=== PATIENT | male | born 1945 | race Caucasian/White ===

== ENCOUNTER 2020-02-07 17:05 | Inpatient (IN) | payer MEDICARE ==
[~2020-02-07 17:05] MED LIST: Iopamidol-370 76% 500 ML 1 ML ONE
--- NOTE | 2020-02-07 17:59 | CT ---
CT ANGIOGRAM OF CHEST WITH CONTRAST: 02/07/20 HISTORY: NSTEMI. COMPARISON: None. FINDINGS: CT angiogram chest performed after the intravenous administration of contrast. 3D rendering provided. No proximal segmental pulmonary arterial filling defect. No pericardial effusion. No mediastinal adenopathy. Calcified hilar lymph nodes. There is scattered 4 to 5 mm pulmonary nodules in the right upper lobe. Mild subpleural reticulation in the lung bases. There is lower lobe interstitial pulmonary edema as well as thickening of the inte rstitium of the lower lobe bronchovascular bundles. No acute osseous abnormality. No acute displaced rib fracture. IMPRESSION: 1. No pulmonary embolism. 2. Mild pulmonary edema. 3. Scattered nodules in the right upper lobe for which follow-up CT of the chest in six months i s recommended. POS: HOME
[2020-02-07] MEDS ORDERED: Nitroglycerin 0.4 MG TAB (25 Tab Bottle) SL PRN (18:42)
[2020-02-07] MEDS ORDERED: Heparin 25,000 units/D5W 500 ML IVPB SCH (18:45)
[2020-02-07] MEDS ORDERED: Morphine 2 MG/ML SYRINGE SLOW IVP PRN (19:06)
[2020-02-07 19:18] LABS: Hemoglobin 13.2 g/dL (14.0-18.0); Platelet Count 257 thou/uL (130-400)
[2020-02-07 19:39] LABS: Anion Gap 12 mmol/L (10-20); BUN (Urea Nitrogen) 16 mg/dL (8.4-25.7); Calc. Creatinine Clearance 0 mL/min (70-130); Calcium 8.9 mg/dL (7.8-10.44); Carbon Dioxide 22 mmol/L (23-31); Chloride 102 mmol/L (98-107); Estimated GFR-MDRD Greater than 90; Glucose 104 mg/dL (83-110); Magnesium 1.8 mg/dL (1.6-2.6); Potassium 4.1 mmol/L (3.5-5.1); Sodium 132 mmol/L (136-145)
--- NOTE | 2020-02-07 19:50 | HP ---
CHIEF COMPLAINT: Chest pain. HISTORY OF PRESENT ILLNESS: A 75-year-old male with a history of hypertension, but not taking blood pressure medications, presenting with exertional angina. The patient originally from [place] moved to [place] and was building a house with his friends. He had few episodes of chest pain, mostly intermittent. This is the 4th episode that got very severe, mostly pressure-like radiating to the jaw and tingling numbness in his fingertips on the right hand. It lasted from noon to 3 :30 until he came to [facility] where they gave him aspirin, nitroglycerin, morphine as well as 25 mg of metoprolol and his chest pain improved. The patient is supposedly on blood pressure medication, but it caused him lot of side effects including dizziness, so he stopped taking the medication. The patient is not diabetic and he does not have hyperlipidemia. No previous history of [place] or stroke. At [facility], they saw the EKG changes with T-inversions in the inferior leads as well as ST depressions in V2 to V4. Troponin 0.015. CT PE is negative. He was started on heparin drip and transferred to the ER here. I requested the emergent ER physician to call the Cardiology as well. Started on a heparin drip. I personally reviewed the EKG. The [facility] EKG shows a definite ST depressions in V2 to V4. Repeat EKG here shows the ST depression seems to be resolved. He still has T-inversions in the inferior lead. REVIEW OF SYSTEMS: A 13-point review of systems reviewed with the patient. He denies any recent fever, night sweats, chills, or productive cough. No nausea, vomiting, abdominal pain, constipation, diarrhea, hematuria, dysuria, or hematochezia. Denies any headache or blurriness. No specific weakness in his extremities. Denies any rash in the body. No sick exposure. ALLERGIES: NO KNOWN DRUG ALLERGY. PAST MEDICAL HISTORY: Hypertension. PAST SURGICAL HISTORY: None. SOCIAL HISTORY: He used to live in [place] with his son-in-law and daughter. Now, he moved to [place] and staying with his friends and building a house. He does not smoke or drink alcohol. FAMILY HISTORY: Significant for mother had a stroke and hypertension. PHYSICAL EXAMINATION: VITAL SIGNS: He is afebrile. Currently normotensive. HEENT: Pupils equal, round, and reactive to light. Anicteric. Mucous membranes moist. CARDIOVASCULAR: Regular rate and rhythm without murmurs, rubs, or gallops. LUNGS: Clear to auscultation bilaterally without wheezing, rales, or rhonchi. ABDOMEN: Soft, nontender, nondistended. Good bowel sounds. No guarding or rigidity. EXTREMITIES: Without any pitting edema. No rash. PSYCHIATRIC: Appropriate mood and affect. NEUROLOGIC: No focal deficits. LABORATORY DATA: Currently, no labs here available yet. EKG changes as mentioned in the history of present illness. IMPRESSION AND PLAN: 1. A 75-year-old male with a history of hypertension and not on medications, presenting with exertional intermittent angina. 2. Non-ST segment elevation myocardial infarction with EKG changes with ST depressions in the anterior leads, V2 to V4, as well as T-inversions in the inferior lead. 3. Hypertension. The patient is admitted in the telemetry, we will continue with heparin protocol, aspirin, nitroglycerin sublingual as needed, along with morphine IV to ease the chest pain. Currently, he is chest pain free. Risk factors modifications with A1c, lipid panel as well as TSH. Cardiology has been consulted. We will follow with their recommendations. We will keep the patient n.p.o. midnight for possible cath in the morning. We will also initiate Toprol as well as Lipitor and adjust the doses based on the lipid level as well as blood pressure. 4. Rest of the management based on clinical course. 5. He is full code. Job ID: [id number] MTDD
[2020-02-07 20:09] LABS: CKMB 71.8 ng/mL (0-6.6)
[2020-02-07] MEDS ORDERED: Atorvastatin Calcium 20 MG TAB PO SCH (21:00)
[2020-02-07] MEDS ORDERED: Metoprolol Tartrate 25 MG TAB PO SCH (21:00)
[2020-02-07] MEDS: Heparin 10,000 UNITS/ 10 ML VIAL SLOW IVP SCH (21:08)
[2020-02-07] MEDS: Famotidine/PF 20 mg/2ml Vial SLOW IVP SCH (21:20)
[2020-02-08] MEDS ORDERED: traMADol HCl 50 MG TAB PO SCH (01:30)
[2020-02-08 02:28] LABS: CKMB 139.8 ng/mL (0-6.6)
[2020-02-08] MEDS: Nitroglycerin 2% Ointment 1 INCH/1 GM Packet TOP SCH ×3 (02:30→17:56)
[2020-02-08 02:53] LABS: #Basophils 0.1 thou/uL (0.0-0.2); #Eosinphils 0.2 thou/uL (0.0-0.7); #Lymphocytes 1.7 thou/uL (1.20-3.40); #Monocytes 0.8 thou/uL (0.11-0.59); #Neutrophils 8.6 thou/uL (1.40-6.50); %Basophils 0.5 % (0.0-1.0); %Eosinophils 1.5 % (0.0-10.0); %Lymphocytes 15.1 % (21.0-51.0); %Monocytes 7.2 % (0.0-10.0); %Neutrophils 75.7 % (42.0-75.0); Hemoglobin 12.9 g/dL (14.0-18.0); Mean Corpuscular HGB CONC 32.4 g/dL (32.0-36.0); Mean Corpuscular Hemoglobin 31.3 pg (27.0-31.0); Mean Corpuscular Volume 96.6 fL (78.0-98.0); Mean Platelet Volume 9.2 fL (7.4-10.4); Platelet Count 234 thou/uL (130-400); RBC Distribution Width 12.4 % (11.5-14.5); Red Blood Cell (RBC) Count 4.11 mill/uL (4.70-6.10); White Blood Cell (WBC) Count 11.4 thou/uL (4.8-10.8)
[2020-02-08 03:26] LABS: ALT (SGPT) 31 U/L (8-55); AST (SGOT) 97 U/L (5-34); Albumin 3.6 g/dL (3.4-4.8); Alkaline Phosphatase 42 U/L (40-110); Anion Gap 12 mmol/L (10-20); BUN (Urea Nitrogen) 18 mg/dL (8.4-25.7); Bilirubin, Total 0.5 mg/dL (0.2-1.2); Calc. Creatinine Clearance 70 mL/min (70-130); Calcium 8.7 mg/dL (7.8-10.44); Carbon Dioxide 20 mmol/L (23-31); Cardiac Risk 3.1 (Less than 4.5); Chloride 107 mmol/L (98-107); Cholesterol 214 mg/dl (< 200 Desired); Estimated GFR-MDRD Greater than 90; Globulin 2.6 g/dL (2.4-3.5); Glucose 112 mg/dL (83-110); HDL Cholesterol 69 mg/dL (>60 Neg Risk); LDL Cholesterol, Calculated 136 mg/dL; Protein, Total 6.2 g/dL (5.8-8.1); Sodium 135 mmol/L (136-145); Triglycerides 47 mg/dL (Less than 150)
[2020-02-08] MEDS: Heparin 10,000 UNITS/ 10 ML VIAL SLOW IVP SCH (03:47)
[2020-02-08] MEDS ORDERED: Ondansetron ODT 4 MG TAB PO PRN (03:55)
[2020-02-08] MEDS ORDERED: Ondansetron PF 4 MG/2 ML Vial IVP PRN (03:55)
[2020-02-08 05:44] LABS: CKMB 137.3 ng/mL (0-6.6); Critical Call CKMB RESULT DECREASING
[2020-02-08] MEDS ORDERED: Nitroglycerin 2% Ointment 1 INCH/1 GM Packet TOP SCH (06:00)
[2020-02-08] MEDS ORDERED: Sodium Chloride 0.9% 10 ML ONE (07:53)
[2020-02-08] MEDS ORDERED: Iopamidol 370 76% 100 ML VIAL ONE (08:51)
[2020-02-08] MEDS: Famotidine/PF 20 mg/2ml Vial SLOW IVP SCH (08:51)
[2020-02-08] MEDS: Aspirin 81 mg Enteric Coated Tablet PO SCH (08:51)
[2020-02-08] MEDS ORDERED: Metoprolol Tartrate 25 MG TAB PO SCH (09:00)
[2020-02-08] MEDS ORDERED: Diazepam 5 MG TAB PO SCH (10:15)
[2020-02-08] MEDS ORDERED: Communication Order-Pharmacy FS SCH ×2 (10:15→13:15)
--- NOTE | 2020-02-08 11:42 | PDOC.HOSPP ---
- Subjective Encounter Date: 02/08/20 Encounter Time: 09:30 Subjective: denies any CP since admission, on NTG patch, trop 11 to 22. going or cath this afternoon. - Objective Vital Signs & Weight: Vital Signs (12 hours) Temp Pulse Resp BP BP Pulse Ox 02/08/20 07:30 98.4 F 56 L 18 106/71 95 02/08/20 03:08 98.3 F 50 L 18 122/70 94 L Weight Weight 135 lb I&O: 02/07/20 02/08/20 02/09/20 06:59 06:59 06:59 Intake Total 350 Output Total 300 Balance 50 Result Diagrams: 02/08/20 02:46 02/08/20 02:46 Hospitalist ROS - Medication Medications: Active Medications Generic Name Dose Route Start Last Admin Trade Name Freq PRN Reason Stop Dose Admin Aspirin 81 mg 02/08/20 09:00 02/08/20 08:51 Ecotrin PO 81 mg DAILY MARQUES Administration Atorvastatin Calcium 20 mg 02/07/20 21:00 02/07/20 21:20 Lipitor PO 20 mg HS MARQUES Administration Heparin Sodium (Porcine) 0 units 02/07/20 18:45 02/08/20 03:47 Heparin 1,000 Units/Ml (10 Ml) SLOW IVP 1,848 unit ASDIR MARQUES Administration Protocol Heparin Sodium/Dextrose 500 mls @ 0 mls/hr 02/07/20 18:45 02/07/20 21:11 Heparin 25,000 Units/D5w IVPB 500 mls INF MARQUES Administration Protocol Per Protocol Nitroglycerin 0.5 inch 02/08/20 02:30 02/08/20 10:04 Nitro-Bid 2% Ointment TOP 0.5 inch Q8H MARQUES Administration Ondansetron HCl 4 mg 02/08/20 03:55 02/08/20 04:45 Zofran Odt PO 4 mg Q6H PRN Administration Nausea/Vomiting - Exam General Appearance: NAD, awake alert Eye: PERRL ENT: normocephalic atraumatic Neck: supple Heart: RRR Respiratory: CTAB, normal chest expansion Gastrointestinal: soft, normal bowel sounds Neurological: no focal deficits Psychiatric: normal affect, A&O x 3 Hosp A/P - Plan NSEMI --heparin gtt - ASA, NTG patch, lopressor[hold], lipitor and ACEI low dose --plan for cath this afternoon. HTN -BP on the low side - lopressor off. TSH in nl range HLP with LDL of 136 --increased lipitor dose.
[2020-02-08] MEDS ORDERED: Fentanyl 100 MCG/2 ML VIAL ONE (11:54)
[2020-02-08] MEDS ORDERED: Midazolam HCl 2 mg/2 ml Vial ONE (11:54)
[2020-02-08] MEDS ORDERED: Nitroglycerin 100MG/250ML BOT 250 ML ONE (12:27)
--- NOTE | 2020-02-08 12:48 | CON ---
DATE OF CONSULTATION: 02/08/2020 REASON FOR CONSULTATION: Non-ST elevation myocardial infarction. HISTORY OF PRESENT ILLNESS: Mr. Nichole is a 75-year-old gentleman with history of peripheral vascular disease, history of deep venous thrombosis in the past with non-ST elevation infarction yesterday. Mr. Nichole was at home. He started having the onset of severe pain across his chest. It was intense. He initially thought it was indigestion, but later went to the emergency room in [place]. He had deep ST depression in the anterior chest leads, especially pronounced was V2, V3, and there is some degree in V4. The EKGs subsequently showed some transient ST elevation in leads II, III, and aVF with ST depression in V2 and V3 with lower heart rate. The patient was given medication. He has received nitrates. He has received intravenous heparin. EKG yesterday evening was markedly improved with T-wave inversions in the inferior leads. Next, the patient is resting pain-free now. No chest pain or pressure now. PAST MEDICAL HISTORY: 1. History of smoking, but he quit 20 years ago. 2. History of peripheral vascular disease. He was told they could consider putting a stent in his lower extremity, but he opted not to do that and is doing okay from a peripheral disease standpoint. 3. He said he had a clot in his left leg over a year ago, was transiently on Eliquis. The patient states he underwent evaluation at [facility] a few years ago and did not find any cardiac problems at that time after a syncopal episode. The patient is currently resting comfortably, pain free. MEDICATIONS: He was taking none prior to admission except for some "supplements." The patient here is on aspirin and atorvastatin. He is on intravenous heparin and nitrates as well as Protonix. REVIEW OF SYSTEMS: CONSTITUTIONAL: No significant weight gain or loss. VISION: No changes. HEARING: No changes. PULMONARY: No cough or wheezing. GASTROINTESTINAL: No nausea, vomiting, or diarrhea. SKIN: No rashes. NEUROLOGIC: No unilateral weakness or numbness. PSYCHIATRIC: No unusual depression or anxiety. HEMATOLOGIC: No unusual bruising. GENITOURINARY: No burning with urination. SOCIAL HISTORY: As outlined above. He is continuing to work, doing physical work. He said he has been doing well until about 2 weeks ago. He started having exertional chest pressure and any stabbing pain at rest yesterday. PHYSICAL EXAMINATION: GENERAL: This is a pleasant, thin gentleman 75 years of age. VITAL SIGNS: Blood pressure 106/71 and pulse 60, it is regular. EYES: Sclerae are nonicteric. Mouth; mucous membranes moist. NECK: Supple without lymphadenopathy. LUNGS: Clear. CARDIAC: Normal S1. Normal S2. There is no murmur, rub, or gallop. ABDOMEN: Soft and nontender. EXTREMITIES: Warm and dry. No clubbing, cyanosis, or edema. The patient has palpable femoral pulse on the right and a palpable femoral pulse in the left, but is diminished. I do not feel popliteal pulses. I do not feel pedal pulses. PERTINENT LABORATORY DATA: The patient had EKGs as outlined above. The patient's troponin this morning was 22.78, indicating a moderate amount of myocardial injury. LDL cholesterol early this morning was 136. ASSESSMENT: 1. Status post non-ST elevation myocardial infarction. 2. Peripheral vascular disease. 3. Remote history of smoking, quit 20 years ago. 4. Currently, pain-free. 5. Hypocholesterolemia, appear with triglycerides 47. PLAN: 1. He is on aspirin. 2. He is on heparin. 3. Received nitrates. 4. Hold beta-blockers if heart rates have been in the 50s. 5. Proceed to cardiac catheterization. Discussed the risks of procedure including stroke, heart attack, iodine allergy, loss of blood supply to leg or kidney, risk of stent thrombosis, risk emergency bypass surgery, all discussed. However, cardiac catheterization is definitely indicated in this situation. The patient understands and he wishes to proceed. Job ID: [id number]
[2020-02-08] MEDS ORDERED: Communication Order-Pharmacy FS ONE (12:49)
[2020-02-08] MEDS ORDERED: Acetaminophen/Codeine 30-300mg Tablet PO PRN ×2 (14:14)
[2020-02-08] MEDS ORDERED: Sodium Chloride 0.9% 200 ML IV PRN (14:14)
[2020-02-08] MEDS ORDERED: Lisinopril 5 MG TAB PO SCH (17:45)
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
[2020-02-08] MEDS: Atorvastatin Calcium 20 MG TAB PO SCH (21:24)
[2020-02-08] MEDS: Nitroglycerin 0.4 MG TAB (25 Tab Bottle) SL PRN ×2 (21:24→22:14)
[2020-02-09] MEDS: Nitroglycerin 2% Ointment 1 INCH/1 GM Packet TOP SCH ×3 (02:55→17:40)
[2020-02-09] MEDS ORDERED: Lisinopril 2.5 MG TAB PO SCH (09:00)
[2020-02-09] MEDS: Lisinopril 5 MG TAB PO SCH (10:18)
[2020-02-09] MEDS: Aspirin 81 mg Enteric Coated Tablet PO SCH (10:20)
--- NOTE | 2020-02-09 10:28 | PRG ---
DATE OF SERVICE: 02/09/2020 SUBJECTIVE: Dionisio still has occasional chest discomfort, currently much better, pain-free now. OBJECTIVE: VITAL SIGNS: Blood pressure 114/60, pulse 68. LUNGS: Clear. CARDIAC: Normal S1 and S2. ABDOMEN: Soft, nontender. ASSESSMENT: 1. Status post recent posterolateral infarct. 2. Recurrent chest tightness, probably related to the occluded circumflex filling by collaterals. 3. Also has a critical lesion in the right coronary. PLAN: 1. He is on aspirin. 2. Statin. 3. Nitrates. 4. Beta blockers. 5. KRISSY inhibitors. 6. Plan is to proceed due to bypass surgery on Tuesday. Job ID: [id number] MTDD
--- NOTE | 2020-02-09 17:00 | PDOC.HOSPP ---
- Subjective Encounter Date: 02/09/20 Encounter Time: 14:00 Subjective: The patient reported that he had some chest pain that felt like a tightness. He states the nitro makes his chest pain go away. No SOB. He also reports cramps in his legs and was told he had 50% blockage in his arteries in his legs. He also has varicose veins and states that his left heel is hurting and wondering if that is from his varicose vein. He is asking for topical cream to be applied there so he can sleep better at night - Objective Vital Signs & Weight: Vital Signs (12 hours) Temp Pulse Resp BP Pulse Ox 02/09/20 16:34 98.8 F 71 18 112/62 96 02/09/20 13:15 98.0 F 66 18 119/62 97 02/09/20 08:55 98.3 F 68 18 114/62 95 Weight Admit Weight 135 lb Weight 135 lb I&O: 02/08/20 02/09/20 02/10/20 06:59 06:59 06:59 Intake Total 350 1280 Output Total 300 1100 Balance 50 180 Result Diagrams: 02/08/20 02:46 02/08/20 02:46 Hospitalist ROS - Review of Systems Constitutional: denies: fever, chills - Medication Medications: Active Medications Generic Name Dose Route Start Last Admin Trade Name Deja PRN Reason Stop Dose Admin Aspirin 81 mg 02/08/20 09:00 02/09/20 10:20 Ecotrin PO 02/11/20 08:59 81 mg DAILY MARQUES Administration Atorvastatin Calcium 80 mg 02/08/20 11:41 02/08/20 21:24 Lipitor PO 02/11/20 08:59 80 mg HS MARQUES Administration Lisinopril 5 mg 02/09/20 09:00 02/09/20 10:18 Zestril PO Not Given DAILY MARQUES Metoprolol Succinate 25 mg 02/09/20 09:00 02/09/20 10:19 Toprol Xl PO Not Given DAILY MARQUES Nitroglycerin 0.5 inch 02/08/20 02:30 02/09/20 10:20 Nitro-Bid 2% Ointment TOP 02/11/20 08:59 0.5 inch Q8H MARQUES Administration Nitroglycerin 0.4 mg 02/08/20 14:14 02/08/20 22:14 Nitrostat SL 02/11/20 08:59 0.4 mg Q5MIN PRN Administration Chest Pain Ondansetron HCl 4 mg 02/08/20 03:55 02/08/20 04:45 Zofran Odt PO 02/11/20 08:59 4 mg Q6H PRN Administration Nausea/Vomiting Pantoprazole Sodium 40 mg 02/09/20 09:00 02/09/20 10:20 Protonix PO 02/11/20 08:59 40 mg DAILY MARQUES Administration - Exam General Appearance: NAD, awake alert Eye: PERRL, anicteric sclera ENT: normocephalic atraumatic, no oropharyngeal lesions Neck: no JVD Heart: RRR, no murmur, no gallops, no rubs Respiratory: CTAB, no wheezes, no rales, no ronchi Gastrointestinal: soft, non-tender, non-distended, normal bowel sounds Extremities: no edema Extremities - other findings: varicose veins in legs Skin: normal turgor, no lesions, no rashes Neurological: cranial nerve grossly intact, normal sensation to touch, no focal deficits, no new deficit Musculoskeletal: normal tone, normal strength, no muscle wasting Musculoskeletal - other findings: tenderness left heel and mild redness Psychiatric: normal affect, normal behavior, A&O x 3, oriented to person Hosp A/P - Plan ECHO: EF 50-55%, with posterior and lateral hypokinesis Cath: 2 vessel disease with circumflex occlusion and RCA 95% This is a 75 year old male who presented with chest pain radiating to the jaw and right hand NSTEMI - ECHO shows EF 50-55% with posterior and lateral wall hypokinesis. Troponin up to 22. Cath showed 2 vessel disease - plan for CABG on Tuesday - continue nitro patch - continue aspirin, statin, lisinopril, nitro Bilateral iliac stenosis - continue aspirin and statin Varicose vein - lidocaine prn for pain Leukocytosis - WBC 11.4, no signs of infection currently Anemia - stable Hb 12.9
[2020-02-09 19:02] LABS: Hemoglobin 12.5 g/dL (14.0-18.0); Platelet Count 213 thou/uL (130-400)
[2020-02-09] MEDS: Atorvastatin Calcium 20 MG TAB PO SCH (20:53)
[2020-02-10] MEDS: Nitroglycerin 2% Ointment 1 INCH/1 GM Packet TOP SCH ×3 (02:02→17:05)
[2020-02-10 04:17] LABS: Anion Gap 12 mmol/L (10-20); BUN (Urea Nitrogen) 14 mg/dL (8.4-25.7); Calc. Creatinine Clearance 69 mL/min (70-130); Calcium 8.9 mg/dL (7.8-10.44); Carbon Dioxide 23 mmol/L (23-31); Chloride 106 mmol/L (98-107); Estimated GFR-MDRD Greater than 90; Glucose 94 mg/dL (83-110); Potassium 4.1 mmol/L (3.5-5.1); Sodium 137 mmol/L (136-145)
[2020-02-10 04:18] LABS: Hemoglobin 12.2 g/dL (14.0-18.0); Mean Corpuscular HGB CONC 32.8 g/dL (32.0-36.0); Mean Corpuscular Hemoglobin 31.8 pg (27.0-31.0); Mean Corpuscular Volume 96.8 fL (78.0-98.0); Mean Platelet Volume 10.1 fL (7.4-10.4); Platelet Count 203 thou/uL (130-400); RBC Distribution Width 12.5 % (11.5-14.5); Red Blood Cell (RBC) Count 3.83 mill/uL (4.70-6.10)
[2020-02-10] MEDS: Lisinopril 5 MG TAB PO SCH (08:32)
[2020-02-10] MEDS: Aspirin 81 mg Enteric Coated Tablet PO SCH (08:33)
[2020-02-10] MEDS ORDERED: LIDOCAINE 4% Topical Sol 4 ML SOLN.PK.G. TP SCH (09:00)
[2020-02-10] MEDS: Lidocaine 4% Topical Sol 50 ML BOT TOP PRN ×2 (12:36→17:05)
--- NOTE | 2020-02-10 14:38 | PRG ---
DATE OF SERVICE: 02/10/2020 SUBJECTIVE: Mr. Nichole is doing well today. No chest pain or pressure. Feels well. OBJECTIVE: VITAL SIGNS: Blood pressure 133/81; pulse 70, it is regular. LUNGS: Clear. CARDIAC: Normal S1. Normal S2. ABDOMEN: Soft and nontender. Right groin is clean and dry. EXTREMITIES: No edema. ASSESSMENT: 1. Status post posterior wall infarct with collateral formation. 2. Severe coronary artery disease in the right coronary. PLAN: Proceed to bypass surgery tomorrow. We will give him a single dose of Lovenox, DVT prophylaxis dose today. Job ID: [id number]
--- NOTE | 2020-02-10 14:54 | PDOC.HOSPP ---
- Subjective Encounter Date: 02/10/20 Encounter Time: 12:00 Subjective: The patient reports his chest pain is relieved with nitroglycerin. He has some shortness of breath while walking today but no dizziness or lightheadedness. He states he still has some cramps in his left leg, but none in his right leg. He was told his ankle brachial index was abnormal 10-15 years ago and stated he had a blockage in popliteal artery but it was not amenable to stenting. This was apparently at [facility] in [place] but he has not had it re-evaluated since - Objective Vital Signs & Weight: Vital Signs (12 hours) Temp Pulse Resp BP BP Pulse Ox 02/10/20 11:00 98.1 F 73 18 133/81 97 02/10/20 08:29 72 110/64 02/10/20 07:27 99.2 F 76 17 109/64 95 02/10/20 04:00 99.4 F 69 16 103/58 L 95 Weight Admit Weight 135 lb Weight 135 lb I&O: 02/09/20 02/10/20 02/11/20 06:59 06:59 06:59 Intake Total 1280 360 Output Total 1100 525 Balance 180 -165 Result Diagrams: 02/10/20 03:37 02/10/20 03:37 Hospitalist ROS - Review of Systems Constitutional: denies: fever, chills - Medication Medications: Active Medications Generic Name Dose Route Start Last Admin Trade Name Freq PRN Reason Stop Dose Admin Aspirin 81 mg 02/08/20 09:00 02/10/20 08:33 Ecotrin PO 02/11/20 08:59 81 mg DAILY MARQUES Administration Atorvastatin Calcium 80 mg 02/08/20 11:41 02/09/20 20:53 Lipitor PO 02/11/20 08:59 80 mg HS MARQUES Administration Enoxaparin Sodium 30 mg 02/10/20 16:00 02/10/20 14:26 Lovenox SC 02/10/20 18:00 30 mg NOW MARQUES Administration Lidocaine HCl 0 ml 02/09/20 15:12 02/10/20 12:36 Xylocaine 4% Topical Annie TOP 1 applic DAILY PRN Administration L HEEL PAIN Lisinopril 5 mg 02/09/20 09:00 02/10/20 08:32 Zestril PO Not Given DAILY MARQUES Metoprolol Succinate 25 mg 02/09/20 09:00 02/10/20 08:32 Toprol Xl PO Not Given DAILY MARQUES Nitroglycerin 0.5 inch 02/08/20 02:30 02/10/20 08:33 Nitro-Bid 2% Ointment TOP 02/11/20 08:59 0.5 inch Q8H MARQUES Administration Nitroglycerin 0.4 mg 02/08/20 14:14 02/08/20 22:14 Nitrostat SL 02/11/20 08:59 0.4 mg Q5MIN PRN Administration Chest Pain Ondansetron HCl 4 mg 02/08/20 03:55 02/08/20 04:45 Zofran Odt PO 02/11/20 08:59 4 mg Q6H PRN Administration Nausea/Vomiting Pantoprazole Sodium 40 mg 02/09/20 09:00 02/10/20 08:33 Protonix PO 02/11/20 08:59 40 mg DAILY MARQUES Administration - Exam General Appearance: NAD, awake alert Eye: PERRL, anicteric sclera ENT: normocephalic atraumatic, no oropharyngeal lesions Neck: no JVD Heart: RRR, no murmur, no gallops, no rubs Respiratory: CTAB, no wheezes, no rales, no ronchi Gastrointestinal: soft, non-tender, non-distended, normal bowel sounds Extremities: no cyanosis, no clubbing, no edema Extremities - other findings: diminished pulses dorsal pedis Skin: normal turgor, no lesions, no rashes Neurological: cranial nerve grossly intact, normal sensation to touch, no focal deficits, no new deficit Musculoskeletal: normal tone, normal strength, no muscle wasting Psychiatric: A&O x 3 Hosp A/P - Plan ECHO: EF 50-55%, with posterior and lateral hypokinesis Cath: 2 vessel disease with circumflex occlusion and RCA 95% CTA chest: no PE, mild pulmonary edema. RUL nodules for which follow up CT chest recommended This is a 75 year old male who presented with chest pain radiating to the jaw and right hand NSTEMI - ECHO shows EF 50-55% with posterior and lateral wall hypokinesis. Troponin up to 22. Cath showed 2 vessel disease - plan for CABG on Tuesday - continue nitro patch - continue aspirin, statin, lisinopril, nitro - give one dose of lovenox today per cardiology Bilateral iliac stenosis - continue aspirin and statin - will check arterial dopplers due to diminished pulses and cramps in legs Varicose vein - lidocaine prn for pain Leukocytosis - WBC 11.0, no signs of infection currently, will monitor Anemia - stable Hb 12.2 RUL pulmonary nodule - noted on CTA chest. Needs repeat CT of the chest in 6 months
[2020-02-10] MEDS ORDERED: Enoxaparin Sodium 30 MG/0.3 ML SYRINGE SC SCH (16:00)
--- NOTE | 2020-02-10 16:20 | EKG ---
Test Reason : STAT Blood Pressure : / mmHG Vent. Rate : 057 BPM Atrial Rate : 057 BPM P-R Int : 130 ms QRS Dur : 072 ms QT Int : 460 ms P-R-T Axes : 035 063 -69 degrees QTc Int : 447 ms Sinus bradycardia with Premature atrial complexes T wave abnormality, consider inferior ischemia Abnormal ECG Confirmed by AMELIA JUAREZ (2) on 02/10/2020 4:20:24 PM Referred By: WU MENA Confirmed By:AMELIA JUAREZ
--- NOTE | 2020-02-10 16:31 | EKG ---
Test Reason : STAT Blood Pressure : / mmHG Vent. Rate : 050 BPM Atrial Rate : 050 BPM P-R Int : 134 ms QRS Dur : 070 ms QT Int : 492 ms P-R-T Axes : 016 074 -82 degrees QTc Int : 448 ms Poor data quality, interpretation may be adversely affected Sinus bradycardia T wave abnormality, consider inferior ischemia Abnormal ECG No previous ECGs available Confirmed by AMELIA JUAREZ (2) on 02/10/2020 4:30:53 PM Referred By: Confirmed By:AMELIA JUAREZ
--- NOTE | 2020-02-10 16:32 | EKG ---
Test Reason : STAT Blood Pressure : / mmHG Vent. Rate : 049 BPM Atrial Rate : 049 BPM P-R Int : 128 ms QRS Dur : 072 ms QT Int : 504 ms P-R-T Axes : 020 075 -62 degrees QTc Int : 455 ms Marked sinus bradycardia Inerolateral ischemia Abnormal ECG Confirmed by AMELIA JUAREZ (2) on 02/10/2020 4:31:35 PM Referred By: WU MENA Confirmed By:AMELIA JUAREZ
--- NOTE | 2020-02-10 18:36 | ULT ---
Arterial duplex sonogram bilateral lower extremity HISTORY: Bilateral leg pain. Vascular disease. Decreased pulses. FINDINGS: Right: Good color and spectral Doppler flow. Monophasic flow is present within the common femoral art safia and deep femoral artery and within the proximal to midportion of the femoral artery. Elevated peak systolic velocity within the proximal portion of the femoral artery at 204 cm/s. No flow detecta ble within the distal femoral artery. Good color and spectral Doppler flow within the popliteal, anterior tibial, posterior tibial, and dorsalis pedis arteries. Left: Good color and spectral Doppler flow. Biphasic flow within the common femoral artery. Monophasi c flow within the deep femoral, femoral, popliteal, anterior tibial, posterior tibial, and dorsalis pedis arteries. IMPRESSION : Abnormal exam with evidence of vascular disease. Elevated velocity within the right femoral artery suggestive of significant stenosis. Absence of flow within the distal portion of the femoral artery may represent complete or near-complete occlusion. Dampened pulsatility is within the arterial structures of each leg suggest the possibility of a more proximal stenosis.
[2020-02-10] MEDS: Atorvastatin Calcium 20 MG TAB PO SCH (20:43)
[2020-02-11] MEDS: Nitroglycerin 2% Ointment 1 INCH/1 GM Packet TOP SCH (04:35)
[2020-02-11 05:43] LABS: Calc. Creatinine Clearance 64 mL/min (70-130); Estimated GFR-MDRD 87
[2020-02-11] MEDS: Lisinopril 5 MG TAB PO SCH (06:02)
[2020-02-11] MEDS ORDERED: Albumin 5% 500 ML ONE (06:32)
[2020-02-11] MEDS ORDERED: Fentanyl 250 MCG/5 ML VIAL ONE (06:44)
[2020-02-11] MEDS ORDERED: Midazolam HCl 5 mg/5 ml Vial ONE (06:44)
[2020-02-11] MEDS ORDERED: Vecuronium 10 MG VIAL ONE ×2 (06:45→11:07)
[2020-02-11] MEDS ORDERED: Dexmedetomidine 200 MCG/2 ML VIAL ONE (06:45)
[2020-02-11] MEDS ORDERED: Midazolam HCl 2 mg/2 ml Vial ONE (07:04)
[2020-02-11] MEDS ORDERED: Heparin 10,000 UNITS/1 ML VIAL 30,000 UNITS in Sodium Chloride 0.9% 1,000 ML FS SCH (07:45)
[2020-02-11] MEDS ORDERED: PHENYLEPHRINE-NS 100 MCG/ML 10 ML SYRINGE ONE (08:51)
[2020-02-11] MEDS ORDERED: Bisacodyl 10 MG SUPP PR PRN (11:01)
[2020-02-11] MEDS ORDERED: Potassium Chloride 20 MEQ/100 ML PREMIX BAG IVPB PRN (11:01)
[2020-02-11] MEDS ORDERED: Morphine 2 MG/ML SYRINGE SLOW IVP PRN (11:01)
[2020-02-11] MEDS ORDERED: Bisacodyl 5 MG TAB PO PRN (11:01)
[2020-02-11] MEDS ORDERED: Post-Op Insulin Drip Protocol IVPB ONE (11:01)
[2020-02-11] MEDS ORDERED: Magnesium 2 GM/50 ML 2 GM in Premix Bag 1 BAG IVPB SCH (11:01)
[2020-02-11] MEDS ORDERED: hydrALAZINE 20 MG/ML VIAL SLOW IVP PRN (11:01)
[2020-02-11] MEDS ORDERED: Norepinephrine 8 MG/0.9% NS 250 ML IVPB PRN (11:01)
[2020-02-11] MEDS ORDERED: niCARdipine 25 MG in Sodium Chloride 0.9% 250 ML 250 ML IVPB PRN (11:01)
[2020-02-11] MEDS ORDERED: Ondansetron PF 4 MG/2 ML Vial IVP PRN (11:01)
[2020-02-11] MEDS ORDERED: Mag-Al 1200 mg/1200 mg/30 ML UDCUP PO PRN (11:01)
[2020-02-11] MEDS ORDERED: DOPamine 400 MG/D5W 250 ML 250 ML IVPB PRN (11:01)
[2020-02-11] MEDS ORDERED: HYDROcodone/Acetaminophen 5/325 mg Tablet PO PRN (11:01)
[2020-02-11] MEDS ORDERED: Promethazine HCl 25 MG/ML VIAL IM PRN (11:01)
[2020-02-11] MEDS ORDERED: Fentanyl 100 MCG/2 ML VIAL SLOW IVP PRN (11:01)
[2020-02-11] MEDS ORDERED: Acetaminophen 325 MG TAB PO PRN (11:01)
[2020-02-11] MEDS ORDERED: Guaifenesin DM 100-10/5 ML UDCUP PO PRN (11:01)
[2020-02-11] MEDS ORDERED: Hetastarch 6% 500 ML 500 ML IVPB PRN (11:01)
[2020-02-11] MEDS ORDERED: Nitroglycerin 50 MG/250 ML BOT 250 ML IVPB PRN (11:01)
[2020-02-11] MEDS ORDERED: Heparin 5,000 UNITS/ML VIAL ONE (11:07)
[2020-02-11] MEDS ORDERED: Lidocaine 1% PF 5 ML VIAL ONE (11:07)
[2020-02-11] MEDS ORDERED: Magnesium Sulfate 1 GM/2 ML VIAL ONE (11:07)
[2020-02-11] MEDS ORDERED: Calcium Chloride 1 GM/10 ML Abboject SYRINGE ONE (11:07)
[2020-02-11] MEDS ORDERED: PROPOFOL 200 MG/20 ML VIAL ONE (11:07)
[2020-02-11] MEDS ORDERED: Lidocaine 2% PF 5 ML VIAL ONE (11:07)
[2020-02-11] MEDS ORDERED: Papaverine 60 MG/2 ML VIAL ONE (11:07)
[2020-02-11] MEDS ORDERED: Norepinephrine 4 MG/4 ML VIAL ONE (11:07)
[2020-02-11] MEDS ORDERED: Glycopyrrolate 0.2 MG/ML 5 ML SYRINGE ONE (11:07)
[2020-02-11] MEDS ORDERED: Thrombin 5000 UNITS/5 ML VIAL ONE (11:07)
[2020-02-11] MEDS ORDERED: Aminocaproic Acid 5 GM/20 ML VIAL ONE (11:07)
[2020-02-11] MEDS ORDERED: Protamine Sulfate 250 MG/25 ML VIAL ONE (11:07)
[2020-02-11] MEDS ORDERED: Potassium Chloride 60 MEQ/30 ML VIAL ONE (11:07)
[2020-02-11] MEDS ORDERED: Sodium Bicarb 50 MEQ/50 ML Abboject 8.4% SYRINGE ONE (11:07)
[2020-02-11] MEDS ORDERED: Ondansetron PF 4 MG/2 ML Vial ONE (11:07)
[2020-02-11] MEDS ORDERED: Nitroglycerin 50 MG/250 ML BOT ONE (11:07)
[2020-02-11] MEDS ORDERED: Cardioplegic Soln 1,000 ML BAG ONE (11:07)
[2020-02-11] MEDS ORDERED: Heparin 30,000 units/30 ml VIAL ONE (11:07)
[2020-02-11] MEDS ORDERED: HUMULIN R 100 UNITS in Sodium Chloride 0.9% 100 ML IVPB SCH (11:16)
[2020-02-11] MEDS ORDERED: Insulin Regular 300 UNITS/3 ML VIAL SC PRN (11:16)
[2020-02-11] MEDS ORDERED: Dextrose 50% Abboject 50 ML SYRINGE SLOW IVP PRN (11:16)
[2020-02-11] MEDS ORDERED: Dextrose 5% in Water 1,000 ML IV PRN (11:16)
[2020-02-11] MEDS ORDERED: Ketorolac Tromethamine 30 MG/ML VIAL ONE (11:42)
[2020-02-11] MEDS ORDERED: Ketorolac Tromethamine 30 MG/ML VIAL IVP SCH ×2 (12:00→12:15)
[2020-02-11 12:01] LABS: INR-International Normal Ratio 1.3; PTT 30.1 SEC (22.9-36.1); Prothrombin Time 16.1 sec (12.0-14.7)
[2020-02-11] MEDS: Fentanyl 100 MCG/2 ML VIAL SLOW IVP PRN ×2 (12:04→15:10)
[2020-02-11] MEDS: Lactated Ringer's 1,000 ML IV SCH (12:06)
[2020-02-11 12:12] LABS: Anion Gap 11 mmol/L (10-20); BUN (Urea Nitrogen) 16 mg/dL (8.4-25.7); Calc. Creatinine Clearance 73 mL/min (70-130); Calcium 7.5 mg/dL (7.8-10.44); Carbon Dioxide 24 mmol/L (23-31); Chloride 107 mmol/L (98-107); Estimated GFR-MDRD Greater than 90; Glucose 121 mg/dL (83-110); Potassium 4.3 mmol/L (3.5-5.1); Sodium 138 mmol/L (136-145)
--- NOTE | 2020-02-11 13:13 | OP ---
DATE OF PROCEDURE: 02/11/2020 PREOPERATIVE DIAGNOSIS: Coronary artery disease status post lateral NH. PROCEDURE PERFORMED: Coronary artery bypass graft x2, saphenous vein graft to a 1.5 mm right posterolateral and a 1.5 mm obtuse marginal with posterior plaquing. AWNING ASSEMBLER: Rush FINDINGS: The patient had some hemorrhage of his lateral wall, consistent with his recent NH. The patient had a history of DVT of the left leg and also some sort of procedure for varicose veins, that turned out to be based on ultrasound either laser ablation or removal of the saphenous vein on the right leg. In any event, the saphenous vein on the left leg on ultrasound appeared somewhat large. There appeared to be a suitable vein in the right thigh and this led to the surgical intervention on his legs. After prepping and draping, Dr. Beverly initially did an open vein harvest from the right greater saphenous vein. However, after removing a portion of this, it was very small, thin-walled and not suitable for use. He then began an open harvest of the left thigh and it was a dual system with one of the systems being utilized for the posterolateral branch and this was a nice vein and then the other vein for the OM was somewhat large. I performed a median sternotomy, entering the right pleura with a sternal saw. The pericardium was opened. The patient was heparinized. Cannulation carried out and cardiopulmonary bypass instituted. Vessels were inspected. The aorta crossclamped and a liter of cold blood cardioplegia given through the aortic root. Following completion of this, the distal right coronary artery had palpable plaque as expected and the PDA and posterolateral were both rather small, but the posterolateral at its origin appeared to be somewhat bigger and was open. Saphenous vein anastomosis was completed here, passing a 1.5 probe distally prior to tying the suture line. Following this, the obtuse marginal was opened and a large saphenous vein anastomosed here. Additional suture was required at the toe and the lateral aspect of the anastomosis and a 1.5 probe did pass distally prior to tying the suture line initially. The ramus was identified and it was rather small compared to the vein. It was felt best not to graft. The cross-clamp was removed and the partial occluding clamp placed and 2 proximal anastomosis performed on the aortic root. Following this, the patient was weaned from cardiopulmonary bypass. Cannula was removed and the aortic cannulation site secured with a Prolene suture. Mediastinal and right pleural drains were placed, following which the sternum was reapproximated with #7 interrupted wire using vancomycin paste on the sternal edges, platelet rich blood and platelet poor plasma. Subcutaneous tissue and skin were closed in layers and the patient is to be taken to the ICU in guarded condition. Job ID: [id number]
[2020-02-11 13:33] LABS: #Eosinphils 0.3 thou/uL (0.0-0.7); #Lymphocytes 1.4 thou/uL (1.20-3.40); #Monocytes 0.8 thou/uL (0.11-0.59); #Neutrophils 15.1 thou/uL (1.40-6.50); %Basophils 0.3 % (0.0-1.0); %Eosinophils 1.8 % (0.0-10.0); %Lymphocytes 8.1 % (21.0-51.0); %Monocytes 4.7 % (0.0-10.0); %Neutrophils 85.1 % (42.0-75.0); Hemoglobin 11.9 g/dL (14.0-18.0); Mean Corpuscular HGB CONC 31.9 g/dL (32.0-36.0); Mean Corpuscular Hemoglobin 31.2 pg (27.0-31.0); Mean Corpuscular Volume 97.8 fL (78.0-98.0); Mean Platelet Volume 10.4 fL (7.4-10.4); Platelet Count 168 thou/uL (130-400); RBC Distribution Width 12.3 % (11.5-14.5); Red Blood Cell (RBC) Count 3.82 mill/uL (4.70-6.10); White Blood Cell (WBC) Count 17.7 thou/uL (4.8-10.8)
--- NOTE | 2020-02-11 13:50 | RAD ---
CHEST ONE VIEW PORTABLE: History: Recent post op open heart surgery. Comparison: 02-07-2020 FINDINGS: Recent post underlying sternotomy. Right central line in place. Decreased inspiratory effort from the prior preoperative study with some mild bilateral vascular congestion and minimal increased linear a nd interstitial markings. No evidence for pneumothorax or confluent pneumonia or atelectasis. IMPRESSION: Bilateral vascular congestion. Recent post-operative changes. POS: [facility]
--- NOTE | 2020-02-11 13:56 | PDOC.HOSPP ---
- Subjective Encounter Date: 02/11/20 Encounter Time: 13:54 Subjective: Patient is s/p CABG. He complains of frequent muscle spasms in his chest and has difficulty taking a deep breath. He has no nausea or vomiting. Patient states " I am hallucinating I think." Patient recognized who I was but then proceeded to ask me when we were leaving the gas station and who were all the powered suit mechanics in the room earlier. He was aware that he had surgery today with Dr. Villalobos however and said a vein was stripped from his right leg. - Objective Vital Signs & Weight: Vital Signs (12 hours) Temp Pulse Resp BP BP Pulse Ox 02/11/20 11:30 100 02/11/20 11:23 96.6 F L 02/11/20 11:00 99 02/11/20 06:02 77 141/72 H 02/11/20 03:30 98.5 F 77 16 141/72 H 95 Weight Admit Weight 135 lb Weight 138 lb 3.677 oz Most Recent Monitor Data Heart Rate from ECG 67 NIBP 133/82 NIBP BP-Mean 99 Respiration from ECG 13 SpO2 99 I&O: 02/10/20 02/11/20 02/12/20 06:59 06:59 06:59 Intake Total 360 960 300 Output Total 525 880 500 Balance -165 80 -200 Result Diagrams: 02/11/20 11:31 02/11/20 11:31 Additional Labs: Accuchecks 02/11/20 02/11/20 02/11/20 11:07 10:26 09:58 POC Glucose 123 H 132 H 127 H 02/11/20 02/11/20 02/11/20 09:40 09:11 08:20 POC Glucose 119 H 109 96 Hospitalist ROS - Review of Systems Constitutional: denies: fever, chills - Medication Medications: Active Medications Generic Name Dose Route Start Last Admin Trade Name Freq PRN Reason Stop Dose Admin Hydrocodone Bitart/Acetaminophen 1 tab 02/11/20 11:01 02/11/20 13:25 [place] 5/325 PO 1 tab Q4H PRN Administration Moderate Pain (4-6) Albumin Human 12.5 gm 02/11/20 11:01 02/11/20 12:29 Albumin 5% IVPB 02/12/20 11:02 12.5 gm Q6H PRN Administration To Maintain SBP> 90 mmHG Fentanyl 50 mcg 02/11/20 11:01 02/11/20 12:04 Sublimaze SLOW IVP 02/13/20 10:53 50 mcg Q2H PRN Administration Severe Pain (7-10) Lactated Ringer's 1,000 mls @ 75 mls/hr 02/11/20 11:01 02/11/20 12:06 Lactated Ringer's IV Not Given .[id number] MARQUES Norepinephrine Bitartrate 250 mls @ 0 mls/hr 02/11/20 11:01 02/11/20 12:15 Levophed IVPB 250 mls PRN PRN Administration To maintain SBP > 90 mmHG Protocol Titrate Magnesium Sulfate 2 gm/ Device 50 mls @ 50 mls/hr 02/11/20 11:02/11/20 12: 06 IVPB 02/11/20 16:00 50 mls ONE MARQUES Administration - Exam General Appearance: NAD, awake alert General - other findings: in moderate discomfort due to pain Eye: PERRL, anicteric sclera ENT: normocephalic atraumatic, no oropharyngeal lesions Neck: no JVD Heart: RRR, no murmur, no gallops, no rubs Respiratory: CTAB, no wheezes, no rales, no ronchi, no tachypnea, normal percussion Gastrointestinal: soft, non-tender, non-distended Extremities: no cyanosis, no clubbing, no edema Hosp A/P - Plan ECHO: EF 50-55%, with posterior and lateral hypokinesis Cath: 2 vessel disease with circumflex occlusion and RCA 95% CTA chest: no PE, mild pulmonary edema. RUL nodules for which follow up CT chest recommended Arterial US: significant stenosis in right femoral artery. Absence of flow within the distal portion of the femoral artery representing near or complete occlusion This is a 75 year old male who presented with chest pain radiating to the jaw and right hand NSTEMI s/p CABG - ECHO shows EF 50-55% with posterior and lateral wall hypokinesis. Troponin up to 22. 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 Arterial doppler showed complete occlusion of right femoral artery Varicose vein - lidocaine topical prn for pain Leukocytosis - WBC 11.0, no signs of infection currently, will monitor Anemia - stable Hb 12.2 RUL pulmonary nodule - noted on CTA chest. Needs repeat CT of the chest in 6 months
[2020-02-11] MEDS ORDERED: Lidocaine 5% Patch TD SCH (14:00)
[2020-02-11] MEDS: CEFAZOLIN 2 GM in Premix Bag 1 BAG IVPB SCH (15:12)
--- NOTE | 2020-02-11 16:13 | EKG ---
Test Reason : POST CABG Blood Pressure : / mmHG Vent. Rate : 072 BPM Atrial Rate : 072 BPM P-R Int : 136 ms QRS Dur : 072 ms QT Int : 470 ms P-R-T Axes : 033 086 034 degrees QTc Int : 514 ms Normal sinus rhythm Low voltage QRS Nonspecific ST and T wave abnormality Prolonged QT Abnormal ECG When compared with ECG of 08-FEB-2020 02:40, Nonspecific T wave abnormality has replaced inverted T waves in Lateral leads QT has lengthened Confirmed by LEXA LEMUS, SLoli ([id number]) on 02/11/2020 4:13:03 PM Referred By: SUSAN Confirmed By:DR. Pedro LINDQUIST MD
[2020-02-11 16:53] LABS: Hemoglobin 11.8 g/dL (14.0-18.0)
[2020-02-11 17:08] LABS: Potassium 4.5 mmol/L (3.5-5.1)
[2020-02-11] MEDS: HYDROcodone/Acetaminophen 5/325 mg Tablet PO PRN ×2 (18:04→22:02)
[2020-02-11] MEDS ORDERED: Atorvastatin Calcium 10 MG TAB PO SCH (21:00)
[2020-02-11] MEDS: Enoxaparin Sodium 30 MG/0.3 ML SYRINGE SC SCH (21:41)
[2020-02-11] MEDS: Famotidine/PF 20 mg/2ml Vial SLOW IVP SCH (21:41)
[2020-02-12] MEDS: CEFAZOLIN 2 GM in Premix Bag 1 BAG IVPB SCH ×2 (01:29→07:54)
[2020-02-12] MEDS: Lactated Ringer's 1,000 ML IV SCH (01:30)
[2020-02-12] MEDS ORDERED: Lidocaine Patch Removal 1 EACH TOP SCH (02:00)
[2020-02-12 04:43] LABS: #Lymphocytes 1.3 thou/uL (1.20-3.40); #Neutrophils 7.4 thou/uL (1.40-6.50); %Basophils 0.4 % (0.0-1.0); %Eosinophils 0.4 % (0.0-10.0); %Lymphocytes 13.5 % (21.0-51.0); %Monocytes 10.5 % (0.0-10.0); %Neutrophils 75.1 % (42.0-75.0); Hemoglobin 10.6 g/dL (14.0-18.0); Mean Corpuscular HGB CONC 33.8 g/dL (32.0-36.0); Mean Corpuscular Hemoglobin 32.9 pg (27.0-31.0); Mean Corpuscular Volume 97.3 fL (78.0-98.0); Mean Platelet Volume 10.6 fL (7.4-10.4); Platelet Count 189 thou/uL (130-400); RBC Distribution Width 12.2 % (11.5-14.5); White Blood Cell (WBC) Count 9.9 thou/uL (4.8-10.8)
[2020-02-12] MEDS: HYDROcodone/Acetaminophen 5/325 mg Tablet PO PRN ×2 (04:50→15:50)
[2020-02-12 05:02] LABS: Anion Gap 11 mmol/L (10-20); BUN (Urea Nitrogen) 17 mg/dL (8.4-25.7); Calc. Creatinine Clearance 67 mL/min (70-130); Calcium 7.8 mg/dL (7.8-10.44); Carbon Dioxide 25 mmol/L (23-31); Chloride 105 mmol/L (98-107); Estimated GFR-MDRD 88; Glucose 105 mg/dL (83-110); Potassium 4.4 mmol/L (3.5-5.1); Sodium 137 mmol/L (136-145)
[2020-02-12] MEDS: Enoxaparin Sodium 30 MG/0.3 ML SYRINGE SC SCH ×2 (08:10→20:06)
[2020-02-12] MEDS: Famotidine/PF 20 mg/2ml Vial SLOW IVP SCH (08:11)
[2020-02-12] MEDS ORDERED: Bisacodyl 5 MG TAB PO PRN (08:39)
[2020-02-12] MEDS ORDERED: Ondansetron PF 4 MG/2 ML Vial IVP PRN (08:39)
[2020-02-12] MEDS ORDERED: Fentanyl 100 MCG/2 ML VIAL SLOW IVP PRN (08:39)
[2020-02-12] MEDS ORDERED: Mag-Al 1200 mg/1200 mg/30 ML UDCUP PO PRN (08:39)
[2020-02-12] MEDS ORDERED: Guaifenesin DM 100-10/5 ML UDCUP PO PRN (08:39)
[2020-02-12] MEDS ORDERED: Mineral Oil ENEMA PR PRN (08:39)
[2020-02-12] MEDS ORDERED: Nitroglycerin 0.4 MG TAB (25 Tab Bottle) SL PRN (08:39)
[2020-02-12] MEDS ORDERED: Acetaminophen 325 MG TAB PO PRN (08:39)
[2020-02-12] MEDS ORDERED: Bisacodyl 10 MG SUPP PR PRN (08:39)
[2020-02-12] MEDS ORDERED: Aspirin 325 MG TAB PO SCH (09:00)
--- NOTE | 2020-02-12 09:01 | PRG ---
DATE OF SERVICE: 02/12/2020 SUBJECTIVE: Dionisio did well. He is doing well after his two-vessel bypass. No complaints. OBJECTIVE: VITAL SIGNS: Blood pressure 116/72, pulse 90 and it is sinus. LUNGS: Clear. CARDIAC: Normal S1 and S2. There is a very soft one-component rub. ABDOMEN: Soft and nontender. EXTREMITIES: There is no edema. ASSESSMENT: 1. Status post bypass surgery x2. 2. Myocardial infarction preoperatively. PLAN: 1. He is on aspirin. 2. Famotidine. 3. Statin therapy will be given. 4. Enoxaparin. 5. We will start low-dose beta blockers. Job ID: [id number]
--- NOTE | 2020-02-12 09:03 | PRG ---
DATE OF SERVICE: 02/12/2020 The patient is afebrile with blood pressure of about 100, heart rate of about 80. He is sitting in the chair comfortable and conversant. His chest tube output is about 350 and is serous more than sanguineous. Urine output is 10 to 30 mL/h. Complained of some nausea earlier, but has had a cup of coffee. His hemoglobin is 10.6. His creatinine is 0.85. Electrolytes are satisfactory. Chest x-ray is clear. Lungs are clear anteriorly and I do not appreciate any subcutaneous air on palpation. Lower extremities have Phoenix wraps in place. The patient specifically was asked if he had any trouble walking or being active around [place] before surgery, which he responded no. Today, he admits to left calf seizing up with walking rapidly 50 yards or slowly about 200 yards. In any event, the patient probably does not need any intervention at this time in regard to his femoral arteries. On examination, his left popliteal pulse preop was slightly weaker than his right, consistent with some more proximal disease. We will transfer to the floor, probably remove his chest tubes tomorrow. Have started a statin as well as aspirin and will continue low-dose Lovenox given his history of DVT. Incidentally, the patient after further questioning and explaining that his saphenous vein was absent in his right leg, admitted now that in 1974 he did have a vein stripping which he did not bring up preop when specifically asked. Job ID: [id number]
[2020-02-12] MEDS: Famotidine 20 MG TAB PO SCH ×2 (10:09→20:06)
[2020-02-12] MEDS: Aspirin 325 mg Enteric Coated Tablet PO SCH (10:09)
[2020-02-12] MEDS: Polyethylene Glycol 3350 17 GM Packet PO SCH (10:11)
--- NOTE | 2020-02-12 13:23 | RAD ---
PORTABLE CHEST: 02/12/20 HISTORY: Postop sternotomy. COMPARISON: 02/11/20. Postop sternotomy change. Borderline cardiomegaly. Vascular markings within normal range and has impr braulio in appearance from yesterday. There are bilateral effusions and mild bibasilar atelectasis. Cent ral line is unchanged. IMPRESSION: Bilateral effusions and bibasilar atelectasis. Vascular engorgement has improved. POS: [facility]
[2020-02-12] MEDS: Ketorolac Tromethamine 30 MG/ML VIAL IVP SCH ×2 (14:14→21:04)
--- NOTE | 2020-02-12 18:38 | PDOC.HOSPP ---
- Subjective Encounter Date: 02/12/20 Encounter Time: 11:30 Subjective: The patient is doing much better. He has no chest pain. He ambulated without much difficulty. HE was told that he could go home over the weekend. He states that he wants a pureed soft diet since he has no teeth - Objective Vital Signs & Weight: Vital Signs (12 hours) Pulse Pulse BP BP Pulse Ox Pulse Ox Pulse Ox 02/12/20 13:31 88 90 143/82 H 131/71 98 99 02/12/20 08:55 82 90 125/76 147/76 H 98 96 02/12/20 07:34 99 02/12/20 07:22 98 Weight Admit Weight 135 lb Weight 137 lb 12.623 oz Most Recent Monitor Data Heart Rate from ECG 81 NIBP 108/65 NIBP BP-Mean 79 Respiration from ECG 21 SpO2 98 I&O: 02/11/20 02/12/20 02/13/20 06:59 06:59 06:59 Intake Total 960 3057.3 363 Output Total 880 1165 310 Balance 80 1892.3 53 Result Diagrams: 02/12/20 03:20 02/12/20 03:20 Additional Labs: Accuchecks 02/12/20 02/12/20 02/11/20 07:53 01:44 20:09 POC Glucose 104 124 H 99 02/11/20 02/11/20 15:46 11:37 POC Glucose 114 H 120 H Hospitalist ROS - Review of Systems Constitutional: denies: fever, chills - Medication Medications: Active Medications Generic Name Dose Route Start Last Admin Trade Name Freq PRN Reason Stop Dose Admin Hydrocodone Bitart/Acetaminophen 1 tab 02/12/20 08:39 02/12/20 15:50 [place] 5/325 PO 1 tab Q4H PRN Administration Moderate Pain (4-6) Aspirin 325 mg 02/12/20 09:00 02/12/20 10:09 Ecotrin PO Not Given DAILY MARQUES Enoxaparin Sodium 30 mg 02/11/20 21:00 02/12/20 08:10 Lovenox SC 30 mg 0900,2100 MARQUES Administration Famotidine 20 mg 02/12/20 09:00 02/12/20 10:09 Pepcid PO Not Given BID MARQUES Ketorolac Tromethamine 15 mg 02/12/20 14:00 02/12/20 14:14 Toradol IVP 02/14/20 14:01 15 mg Q8HR MARQUES Administration Metoprolol Succinate 12.5 mg 02/12/20 09:00 02/12/20 10:11 Toprol Xl PO 12.5 mg DAILY MARQUES Administration Polyethylene Glycol 17 gm 02/12/20 09:00 02/12/20 10:11 Miralax PO 17 gm DAILY MARQUES Administration - Exam General Appearance: NAD, awake alert Eye: PERRL, anicteric sclera ENT: normocephalic atraumatic, no oropharyngeal lesions Neck: supple, no JVD Heart: RRR, no murmur, no gallops, no rubs Respiratory: CTAB, no wheezes, no rales, no ronchi, normal chest expansion, no tachypnea, normal percussion Gastrointestinal: soft, non-tender, non-distended, normal bowel sounds Extremities: no cyanosis, no clubbing, no edema Skin: normal turgor, no lesions, no rashes Neurological: cranial nerve grossly intact, normal sensation to touch, no focal deficits, no new deficit Hosp A/P - Plan ECHO: EF 50-55%, with posterior and lateral hypokinesis Cath: 2 vessel disease with circumflex occlusion and RCA 95% CTA chest: no PE, mild pulmonary edema. RUL nodules for which follow up CT chest recommended Arterial US: significant stenosis in right femoral artery. Absence of flow within the distal portion of the femoral artery representing near or complete occlusion This is a 75 year old male who presented with chest pain radiating to the jaw and right hand NSTEMI s/p CABG - ECHO shows EF 50-55% with posterior and lateral wall hypokinesis. Troponin up to 22. 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 Arterial doppler showed complete occlusion of right femoral artery - currently has no pain in right leg Varicose vein - lidocaine topical prn for pain Leukocytosis - resolved Anemia - stable Hb 10.6, stable RUL pulmonary nodule - noted on CTA chest. Needs repeat CT of the chest in 6 months
[2020-02-12] MEDS: Atorvastatin Calcium 10 MG TAB PO SCH (20:08)
[2020-02-13 04:51] LABS: Mean Corpuscular HGB CONC 31.9 g/dL (32.0-36.0); Mean Corpuscular Volume 97.2 fL (78.0-98.0); Mean Platelet Volume 10.2 fL (7.4-10.4); Platelet Count 226 thou/uL (130-400); RBC Distribution Width 12.2 % (11.5-14.5); Red Blood Cell (RBC) Count 3.55 mill/uL (4.70-6.10)
[2020-02-13 05:09] LABS: Anion Gap 13 mmol/L (10-20); BUN (Urea Nitrogen) 23 mg/dL (8.4-25.7); Calc. Creatinine Clearance 58 mL/min (70-130); Calcium 8.8 mg/dL (7.8-10.44); Carbon Dioxide 24 mmol/L (23-31); Chloride 103 mmol/L (98-107); Estimated GFR-MDRD 75; Glucose 112 mg/dL (83-110); Potassium 4.2 mmol/L (3.5-5.1); Sodium 136 mmol/L (136-145)
[2020-02-13] MEDS: Ketorolac Tromethamine 30 MG/ML VIAL IVP SCH ×3 (05:21→21:03)
[2020-02-13] MEDS: Furosemide 40 MG TAB PO SCH (08:20)
[2020-02-13] MEDS: Aspirin 325 mg Enteric Coated Tablet PO SCH (08:20)
[2020-02-13] MEDS: Enoxaparin Sodium 30 MG/0.3 ML SYRINGE SC SCH ×2 (08:20→21:03)
[2020-02-13] MEDS: Famotidine 20 MG TAB PO SCH ×2 (08:21→21:03)
[2020-02-13] MEDS: HYDROcodone/Acetaminophen 5/325 mg Tablet PO PRN ×2 (08:22→12:25)
[2020-02-13] MEDS: Polyethylene Glycol 3350 17 GM Packet PO SCH (08:22)
[2020-02-13 12:55] VITALS: BMI 22.6
--- NOTE | 2020-02-13 13:19 | PRG ---
DATE OF SERVICE: 02/13/2020 The patient's blood pressure is slightly elevated in the 130 to 150 range with a heart rate of 70 to 80. The patient had laboratory values today showing a stable hemoglobin at 11, normal white count and normal creatinine. Weight is recorded 146, which is elevated compared to his admission weight of 135. He has only complaints that he is tired of having blood draws from his arm. On examination, his dressing on his chest is dry. I removed both chest drains today and he is to have his [place] catheter removed today. He still has his [place] bandages, which were supposed to be removed yesterday and these should be taken off today and the patient showered. He ambulated the halls twice yesterday without difficulty and will resume this today. He was started on beta blockers by Dr. Tyler yesterday and will continue to monitor his blood pressure. Job ID: [id number]
--- NOTE | 2020-02-13 14:40 | PDOC.HOSPP ---
- Subjective Encounter Date: 02/13/20 Encounter Time: 13:00 Subjective: The patient states he is doing well. He had his drains removed today. He ambulated the hallway without any chest pain or shortness of breath. He states he had some bleeding when they removed one of his bandages from his legs this morning - Objective Vital Signs & Weight: Vital Signs (12 hours) Temp Pulse Pulse Pulse Resp BP BP 02/13/20 11:47 97.6 F 72 18 02/13/20 08:29 86 81 158/86 H 142/75 H 02/13/20 07:25 98.4 F 80 16 02/13/20 07:02 02/13/20 04:00 100.5 F H 92 20 BP Pulse Ox 02/13/20 11:47 135/78 95 02/13/20 08:29 02/13/20 07:25 136/78 92 L 02/13/20 07:02 92 L 02/13/20 04:00 152/88 H 92 L Weight Admit Weight 135 lb Weight 146 lb 12.8 oz Most Recent Monitor Data Heart Rate from ECG 87 NIBP 139/77 NIBP BP-Mean 97 Respiration from ECG 20 SpO2 98 I&O: 02/12/20 02/13/20 02/14/20 06:59 06:59 06:59 Intake Total 3057.3 663 Output Total 1165 895 50 Balance 1892.3 -232 -50 Result Diagrams: 02/13/20 04:33 02/13/20 04:33 Hospitalist ROS - Review of Systems Constitutional: denies: fever, chills - Medication Medications: Active Medications Generic Name Dose Route Start Last Admin Trade Name Freq PRN Reason Stop Dose Admin Hydrocodone Bitart/Acetaminophen 1 tab 02/12/20 08:39 02/13/20 12:25 [place] 5/325 PO 1 tab Q4H PRN Administration Moderate Pain (4-6) Aspirin 325 mg 02/12/20 09:00 02/13/20 08:20 Ecotrin PO 325 mg DAILY MARQUES Administration Atorvastatin Calcium 10 mg 02/12/20 21:00 02/12/20 20:08 Lipitor PO 10 mg HS MARQUES Administration Enoxaparin Sodium 30 mg 02/11/20 21:00 02/13/20 08:20 Lovenox SC 30 mg 0900,2100 MARQUES Administration Famotidine 20 mg 02/12/20 09:00 02/13/20 08:21 Pepcid PO 20 mg BID MARQUES Administration Furosemide 40 mg 02/13/20 07:30 02/13/20 08:20 Lasix PO 40 mg DAILY-AC MARQUES Administration Ketorolac Tromethamine 15 mg 02/12/20 14:00 02/13/20 05:21 Toradol IVP 02/14/20 14:01 15 mg Q8HR MARQUES Administration Polyethylene Glycol 17 gm 02/12/20 09:00 02/13/20 08:22 Miralax PO 17 gm DAILY MARQUES Administration - Exam General Appearance: NAD, awake alert Eye: PERRL, anicteric sclera ENT: normocephalic atraumatic, no oropharyngeal lesions ENT - other findings: patient has no teeth Neck: supple, no JVD Heart: RRR, no murmur, no gallops, no rubs Respiratory: CTAB, no wheezes, no rales, no ronchi Gastrointestinal: soft, non-tender, non-distended, normal bowel sounds Extremities: no cyanosis, no clubbing, no edema Skin: normal turgor, no lesions, no rashes Neurological: cranial nerve grossly intact, normal sensation to touch, no focal deficits, no new deficit Musculoskeletal: normal tone, normal strength, no muscle wasting Psychiatric: normal affect, normal behavior, A&O x 3 Hosp A/P - Plan ECHO: EF 50-55%, with posterior and lateral hypokinesis Cath: 2 vessel disease with circumflex occlusion and RCA 95% CTA chest: no PE, mild pulmonary edema. RUL nodules for which follow up CT chest recommended Arterial US: significant stenosis in right femoral artery. Absence of flow within the distal portion of the femoral artery representing near or complete occlusion This is a 75 year old male who presented with chest pain radiating to the jaw and right hand NSTEMI s/p CABG - ECHO shows EF 50-55% with posterior and lateral wall hypokinesis. Troponin up to 22. Cath showed 2 vessel disease - currently POD 2 from CABG - continue aspirin, statin, lisinopril, nitro. 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 Arterial doppler showed complete occlusion of right femoral artery - currently has no pain in right leg Varicose vein - lidocaine topical prn for pain Leukocytosis - resolved Anemia - stable Hb 10.6, stable RUL pulmonary nodule - noted on CTA chest. Needs repeat CT of the chest in 6 months DIspo: possibly d/c on Tuesday- Tuesday
[2020-02-13] MEDS: Atorvastatin Calcium 10 MG TAB PO SCH (21:03)
[2020-02-14] MEDS: Ketorolac Tromethamine 30 MG/ML VIAL IVP SCH ×2 (05:03→14:55)
[2020-02-14] MEDS: Aspirin 325 mg Enteric Coated Tablet PO SCH (08:31)
[2020-02-14] MEDS: Furosemide 40 MG TAB PO SCH (08:31)
[2020-02-14] MEDS: Famotidine 20 MG TAB PO SCH ×2 (08:31→20:14)
[2020-02-14] MEDS: Enoxaparin Sodium 30 MG/0.3 ML SYRINGE SC SCH ×3 (08:31→20:14)
[2020-02-14] MEDS: Polyethylene Glycol 3350 17 GM Packet PO SCH (08:32)
[2020-02-14] MEDS ORDERED: Lisinopril 5 MG TAB PO SCH (09:00)
--- NOTE | 2020-02-14 10:44 | PRG ---
DATE OF SERVICE: 02/14/2020 SUBJECTIVE: Dionisio feels well. He is sitting up in a chair. OBJECTIVE: VITAL SIGNS: His blood pressure is 172/90, pulse 80. LUNGS: Clear. CARDIAC: Normal S1. Normal S2. ABDOMEN: Soft, nontender. EXTREMITIES: There is no edema. ASSESSMENT: 1. Status post posterior myocardial infarction. 2. Status post bypass surgery. 3. Hypertension. PLAN: 1. Increase beta-blockers. 2. KRISSY inhibitors. 3. Should be ready to go home tomorrow. Job ID: [id number]
--- NOTE | 2020-02-14 15:15 | PDOC.HOSPP ---
- Subjective Encounter Date: 02/14/20 Encounter Time: 10:40 Subjective: The patient is doing well. He walked around with only mild dyspnea on exertion. No chest pain. He has been using incentive spirometry and got up to 1750 ml today. Patient was started on lisinopril today and metoprolol. He states he was on amlodipine and losartan in the past and it didn't agree with him and made his BP drop too low - Objective Vital Signs & Weight: Vital Signs (12 hours) Temp Pulse Pulse Pulse Resp BP BP 02/14/20 08:43 91 85 176/82 H 159/81 H 02/14/20 07:14 98.5 F 85 16 02/14/20 06:01 02/14/20 04:00 97.7 F 75 18 BP Pulse Ox 02/14/20 08:43 02/14/20 07:14 172/91 H 97 02/14/20 06:01 145/83 H 02/14/20 04:00 168/94 H 96 Weight Admit Weight 135 lb Weight 148 lb 9.6 oz Most Recent Monitor Data Heart Rate from ECG 87 NIBP 139/77 NIBP BP-Mean 97 Respiration from ECG 20 SpO2 98 I&O: 02/13/20 02/14/20 02/15/20 06:59 06:59 06:59 Intake Total 663 1061 Output Total 895 1525 Balance -232 -464 Result Diagrams: 02/13/20 04:33 02/13/20 04:33 Hospitalist ROS - Review of Systems Constitutional: denies: fever, chills - Medication Medications: Active Medications Generic Name Dose Route Start Last Admin Trade Name Freq PRN Reason Stop Dose Admin Hydrocodone Bitart/Acetaminophen 1 tab 02/12/20 08:39 02/13/20 12:25 [place] 5/325 PO 1 tab Q4H PRN Administration Moderate Pain (4-6) Aspirin 325 mg 02/12/20 09:00 02/14/20 08:31 Ecotrin PO 325 mg DAILY MARQUES Administration Atorvastatin Calcium 10 mg 02/12/20 21:00 02/13/20 21:03 Lipitor PO 10 mg HS MARQUES Administration Enoxaparin Sodium 30 mg 02/11/20 21:00 02/14/20 08:48 Lovenox SC Not Given 899,2099 MARQUES Famotidine 20 mg 02/12/20 09:00 02/14/20 08:31 Pepcid PO 20 mg BID MARQUES Administration Furosemide 40 mg 02/13/20 07:30 02/14/20 08:31 Lasix PO 40 mg DAILY-AC MARQUES Administration Lisinopril 5 mg 02/14/20 09:00 02/14/20 09:19 Zestril PO 5 mg BID MARQUES Administration Metoprolol Succinate 50 mg 02/14/20 09:00 02/14/20 08:31 Toprol Xl PO 50 mg DAILY MARQUES Administration Polyethylene Glycol 17 gm 02/12/20 09:00 02/14/20 08:32 Miralax PO 17 gm DAILY MARQUES Administration - Exam General Appearance: NAD, awake alert Eye: PERRL, anicteric sclera ENT: normocephalic atraumatic, no oropharyngeal lesions Neck: supple, no JVD Heart: RRR, no murmur, no gallops, no rubs Respiratory: CTAB, no wheezes, no rales, no ronchi Gastrointestinal: soft, non-tender, non-distended Extremities: no cyanosis, no clubbing, no edema Skin: normal turgor, no lesions, no rashes Hosp A/P - Plan ECHO: EF 50-55%, with posterior and lateral hypokinesis Cath: 2 vessel disease with circumflex occlusion and RCA 95% CTA chest: no PE, mild pulmonary edema. RUL nodules for which follow up CT chest recommended Arterial US: significant stenosis in right femoral artery. Absence of flow within the distal portion of the femoral artery representing near or complete occlusion This is a 75 year old male who presented with chest pain radiating to the jaw and right hand NSTEMI s/p CABG - ECHO shows EF 50-55% with posterior and lateral wall hypokinesis. Troponin up to 22. Cath showed 2 vessel disease - currently POD 3 from CABG - continue aspirin, statin, lisinopril, nitro - continue fentanyl prn for pain Hypertension - continue lisinopril 5 mg po bid. 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 Needs repeat CT of the chest in 6 months DIspo: possibly d/c on Tuesday- Tuesday
--- NOTE | 2020-02-14 16:12 | EKG ---
Test Reason : CHEST PAIN Blood Pressure : / mmHG Vent. Rate : 063 BPM Atrial Rate : 063 BPM P-R Int : 134 ms QRS Dur : 072 ms QT Int : 464 ms P-R-T Axes : 065 066 031 degrees QTc Int : 474 ms Sinus rhythm with Premature supraventricular complexes Possible Left atrial enlargement T wave abnormality, consider lateral ischemia Prolonged QT Abnormal ECG Confirmed by GUEVARA PARISH ([id number]), purchasing expeditor RODRÍGUEZ MENDOZA ([id number]) on 02/14/2020 4:11:06 PM Referred By: MALINDAUTLaurie Confirmed By:GUEVARA PARISH
[2020-02-14] MEDS: Atorvastatin Calcium 10 MG TAB PO SCH (20:14)
[2020-02-14] MEDS: Lisinopril 10 MG TAB PO SCH (20:14)
[2020-02-15] MEDS: Furosemide 40 MG TAB PO SCH (07:34)
[2020-02-15] MEDS: Enoxaparin Sodium 30 MG/0.3 ML SYRINGE SC SCH (08:19)
[2020-02-15] MEDS: Famotidine 20 MG TAB PO SCH (08:19)
[2020-02-15] MEDS: Aspirin 325 mg Enteric Coated Tablet PO SCH (08:19)
[2020-02-15] MEDS: Lisinopril 10 MG TAB PO SCH (08:19)
[2020-02-15] MEDS: Polyethylene Glycol 3350 17 GM Packet PO SCH (08:20)
--- NOTE | 2020-02-15 08:22 | PRG ---
DATE OF SERVICE: 02/15/2020 SUBJECTIVE: Mr. Nichole is feeling well. He is schedule to go home. OBJECTIVE: VITAL SIGNS: The blood pressure this morning was 159/78 that was before his medicines and pulse 83. LUNGS: Clear. CARDIAC: Normal S1 and normal S2. ABDOMEN: Soft and nontender. EXTREMITIES: There is no edema. ASSESSMENT: 1. Status post non-ST elevation infarction. 2. Subsequent bypass surgery. 3. Hypertension. PLAN: 1. He is on metoprolol succinate (long-acting) 50 mg a day. 2. Lisinopril 10 mg twice a day. 3. Aspirin. 4. Atorvastatin, currently only on 10 mg a day, dose will be increased later as an outpatient, probably change him to Crestor 20 mg a day. The LDL cholesterol prior to admission was 136. Job ID: [id number]
[2020-02-15 11:13] VITALS: BP 132/79; TEMP 98.7
[2020-02-15] MEDS: HYDROcodone/Acetaminophen 5/325 mg Tablet PO PRN (12:53)
--- NOTE | 2020-02-15 14:57 | DIS ---
DATE OF ADMISSION: 02/07/2020 DATE OF DISCHARGE: 02/15/2020 This is a gentleman who came in with chest pain and found to have 2-vessel coronary artery disease, not amenable to stenting. He underwent coronary artery bypass grafting to the right posterolateral as well as obtuse marginal, which was completely occluded. The LAD had minimal disease. Postoperative course was unremarkable and he will be discharged on metoprolol succinate 50 a day, lisinopril 10 a day, aspirin one a day, 5 day course of Lasix 40, and potassium 10 as well as atorvastatin 20. Discharge and followup instructions have been given. Job ID: [id number]
[2020-02-26 13:53] LABS: Actual Bicarbonate (HCO3a) 22.2 mEq/L (22-28); Analyzer IN Cardio OR; Base Excess (BEa) -4.3 mEq/L (-2.0 to +3.0); CO2 Tension 46.1 mmHg (35.0-45.0); Calcium, Ionized (arterial) 1.07 mmol/L (1.12-1.30); Carboxyhemoglobin (COHb) 0.2 gm% (0.0-3.0); Hemoglobin (Hb) 12.1 g/dL (14.0-18.0); O2 Tension (PaO2), arterial 401.6 mmHg (> 70.0); Potassium - ABG Lab 3.89 mmol/L (3.70-5.30)
[2020-02-26 13:54] LABS: Analyzer IN Cardio OR; Base Excess (BEa) 0.3 mEq/L (-2.0 to +3.0); CO2 Tension 40.8 mmHg (35.0-45.0); Calcium, Ionized (arterial) 1.01 mmol/L (1.12-1.30); Carboxyhemoglobin (COHb) 0.3 gm% (0.0-3.0); Hemoglobin (Hb) 9.3 g/dL (14.0-18.0); O2 Tension (PaO2), arterial 449.9 mmHg (> 70.0); Potassium - ABG Lab 4.28 mmol/L (3.70-5.30); pH, Arterial 7.41 (7.35-7.45)
[2020-02-26 13:54] LABS: Actual Bicarbonate (HCO3a) 22.5 mEq/L (22-28); Analyzer IN Cardio OR; Base Excess (BEa) -1.8 mEq/L (-2.0 to +3.0); CO2 Tension 36.3 mmHg (35.0-45.0); Carboxyhemoglobin (COHb) 0.3 gm% (0.0-3.0); Hemoglobin (Hb) 9.4 g/dL (14.0-18.0); Potassium - ABG Lab 4.11 mmol/L (3.70-5.30); pH, Arterial 7.41 (7.35-7.45)
[2020-02-26 13:56] LABS: Actual Bicarbonate (HCO3a) 21.6 mEq/L (22-28); Analyzer IN Cardio OR; Base Excess (BEa) -1.9 mEq/L (-2.0 to +3.0); CO2 Tension 31.8 mmHg (35.0-45.0); Calcium, Ionized (arterial) 0.99 mmol/L (1.12-1.30); Carboxyhemoglobin (COHb) 0.3 gm% (0.0-3.0); Hemoglobin (Hb) 9.4 g/dL (14.0-18.0); O2 Tension (PaO2), arterial 433.2 mmHg (> 70.0); Potassium - ABG Lab 4.63 mmol/L (3.70-5.30); pH, Arterial 7.45 (7.35-7.45)
[2020-02-26 13:57] LABS: Actual Bicarbonate (HCO3a) 19.8 mEq/L (22-28); Analyzer IN Cardio OR; Base Excess (BEa) -4.2 mEq/L (-2.0 to +3.0); Calcium, Ionized (arterial) 1.06 mmol/L (1.12-1.30); Carboxyhemoglobin (COHb) 0.3 gm% (0.0-3.0); Hemoglobin (Hb) 11.2 g/dL (14.0-18.0); O2 Tension (PaO2), arterial 448.2 mmHg (> 70.0); Potassium - ABG Lab 3.59 mmol/L (3.70-5.30)
[2020-02-26 13:58] LABS: Actual Bicarbonate (HCO3a) 21.1 mEq/L (22-28); Analyzer IN Cardio OR; Base Excess (BEa) -1.8 mEq/L (-2.0 to +3.0); CO2 Tension 30.1 mmHg (35.0-45.0); Carboxyhemoglobin (COHb) 0.6 gm% (0.0-3.0); Hemoglobin (Hb) 12.1 g/dL (14.0-18.0); Potassium - ABG Lab 3.65 mmol/L (3.70-5.30); pH, Arterial 7.46 (7.35-7.45)
== END 2020-02-15 14:05 | disposition home or self-care (01) | DRG 234 ==
LOC: ERS 17:05 → 2NO 18:40 → CCU 02-11 11:24 → 2NO 02-12 21:55
PROVIDERS: ADMIT Specialist; ATTEND Internal Medicine
PROC: 4A023N7 Measurement of Cardiac Sampling and Pressure, Left Heart, Percutaneous Approach (ICD-10-PCS; principal; 2020-02-08)
PROC: B2111ZZ Fluoroscopy of Multiple Coronary Arteries using Low Osmolar Contrast (ICD-10-PCS; 2020-02-08)
PROC: B2151ZZ Fluoroscopy of Left Heart using Low Osmolar Contrast (ICD-10-PCS; 2020-02-08)
PROC: 021109W Bypass Coronary Artery, Two Arteries from Aorta with Autologous Venous Tissue, Open Approach (ICD-10-PCS; 2020-02-11)
PROC: 06BP4ZZ Excision of Right Saphenous Vein, Percutaneous Endoscopic Approach (ICD-10-PCS; 2020-02-11)
PROC: 5A1221Z Performance of Cardiac Output, Continuous (ICD-10-PCS; 2020-02-11)
DX: I21.4 Non-ST elevation (NSTEMI) myocardial infarction (principal); I10 Essential (primary) hypertension; D72.829 Elevated white blood cell count, unspecified; D64.9 Anemia, unspecified; I70.203 Unspecified atherosclerosis of native arteries of extremities, bilateral legs; R91.1 Solitary pulmonary nodule; I25.10 Atherosclerotic heart disease of native coronary artery without angina pectoris; E78.00 Pure hypercholesterolemia, unspecified; I83.90 Asymptomatic varicose veins of unspecified lower extremity; Z86.718 Personal history of other venous thrombosis and embolism; Z79.01 Long term (current) use of anticoagulants; Z87.891 Personal history of nicotine dependence
CPT/HCPCS: 36415; 36416; 36430; 71045; 71275; 76942; 80048; 80053; 80061; 82553; 82565; 82805; 83735; 83880; 84132; 84443; 84484; 85014; 85018; 85025; 85027; 85049; 85347; 85610; 85730; 86850; 86900; 86901; 93005; 93010; 93306; 93458; 93798; 93923; 94760; 99152; 99153; C1769; J0690; J1642; J1644; J1650; J1885; J2001; J2250; J2405; J2440; J2704; J2720; J3010; J3370; J3475; J3480; P9045; Q0162; Q9967; S0017; S0028

== ENCOUNTER 2020-06-16 12:44 | Outpatient (CLI) | payer MEDICARE ==
--- NOTE | 2020-06-16 14:40 | CT ---
EXAM: CT angiogram abdomen and pelvis with IV contrast and 3-D reconstructions CT angiogram bilateral lower extremities runoff to the feet with IV contrast and 3-D reconstructions PROVIDED CLINICAL HISTORY: Peripheral vascular disease. Patient states bilateral leg pain left greater than right. Left foot dis coloration and swelling. COMPARISON: None FINDINGS: Linear scarring and atelectasis is present at each lung base. There is herniation of fat at the poste romedial right lung base. Calcified granulomata are seen in the liver and spleen. The pancreas, bilateral adrenal glands, kidneys, and urinary bladder demonstrate a normal CT appearan ce. Colonic diverticulosis is seen throughout the colon. Loops of small bowel are normal in caliber. Atherosclerotic vascular calcifications and atherosclerotic plaque is seen in the abdominal aorta and involving the iliac arteries. Mild focal narrowing is seen involving the distal infrarenal abdominal aorta. 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 Moderate narrowing is seen at the origin of the r ight internal iliac artery with mild degrees of narrowing involving the right external iliac artery. Irregularity and moderate degree of narrowing is seen involving the mid left common iliac art safia with what is thought to be a partially thrombosed aneurysm involving the left common iliac artery bifurcation with mild to moderate degree of narrowing at this location as well. Left internal iliac artery is occluded at this level. Atherosclerotic irregularity is seen involving the left external iliac artery. The celiac and superior mesenteric arteries are patent. Mild atherosclerotic irregularity involving t hese the proximal ROSITA contains ROSITA is otherwise patent to there is moderate narrowing involving the origin of the right renal artery as well as the origin and proximal left renal artery. Multilevel degenerative changes are seen in the spine. Bilateral lower extremity runoff: Right lower extremity: Atherosclerotic plaque and calcifications with mild degree of narrowing is see n involving the right common femoral artery. The right superficial femoral artery demonstrates moderate narrowing proximally and also occludes proximally. Profunda femoral artery is patent. There is reconstitution of the above the knee popliteal artery which demonstrates mild atherosclerotic irregularity. Three-vessel runoff to the right lower extremity is seen with mild eccentric areas of a therosclerotic calcifications and narrowing. Left lower extremity: Mild atherosclerotic irregularity is seen involving the left common femoral art safia. The left superficial femoral artery occludes proximally. Profunda femoral artery is patent with mild atherosclerotic plaque. There is reconstitution of the cahhs-bck-guki popliteal artery with moderate atherosclerotic irregularity and narrowing involving a portion of the [id number] popliteal artery. The below the knee popliteal artery is patent with three-vessel runoff to the left lower extremity. Subcutaneous edema is seen involving the distal lower extremities bilaterally at the level of the ank le and involving the visualized foot. IMPRESSION: 1. 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 Left internal iliac artery is occluded with moderate to severe narrowing at the origin the right internal iliac artery. 2. Occlusion at the level of the proximal right and origin of the left superficial femoral arteries. Profunda femoral arteries are patent bilaterally with reconstitution of the above the knee popliteal arteries. There is atherosclerotic irregularity involving the ahsek-ieb-wdyy left popliteal artery with mild/moderate degrees of narrowing present. 3. Three-vessel runoff to the bilateral lower extremities. 4. Moderate narrowing involving the single bilateral renal arteries. 5. Subcutaneous edema distal lower extremities. 6. Colonic diverticulosis.
== END 2020-06-16 12:45 | disposition home or self-care (01) ==
LOC: BICCT 12:44
PROVIDERS: ATTEND Thoracic Surgery (Cardiothoracic Vascular Surgery)
DX: I65.23 Occlusion and stenosis of bilateral carotid arteries (principal); I70.245 Atherosclerosis of native arteries of left leg with ulceration of other part of foot
CPT/HCPCS: 75635; 82565

== ENCOUNTER 2020-06-25 12:46 | Outpatient (CLI) | payer MEDICARE ==
--- NOTE | 2020-06-25 13:52 | CT ---
CT angiogram of the neck: 06/25/2020 COMPARISON: None HISTORY: Carotid arterial Doppler ultrasound demonstrated stenosis TECHNIQUE: Axial CT imaging at 2 mm intervals through the neck with IV contrast using CT angiogram pr otocol. Coronal and sagittal 3-D reformatted imaging obtained. FINDINGS: The visualized lung apices demonstrate scattered bilateral upper lobe emphysematous change. Linear and nodular density noted within the right upper lobe, which includes a right upper lobe nodule on axial image 28 measuring 5 mm in AP dimension and superior lateral right upper lobe reticul onodular density. Findings within the right upper lobe are unchanged when compared to chest CT angiogram performed 02/07/2020. A follow-up chest CT was recommended based on that study to be performe d in August 2020. There are midline sternotomy wires present. The retroantral fat and parapharyngeal fat appears clear bilaterally. The parotid glands and the subm andibular glands appear grossly unremarkable. Region of the tonsillar pillars demonstrates areas of calcification suggesting prior inflammatory change. The epiglottis and preepiglottic fat, the hyoid b one, the thyroid cartilage, the cricoid cartilage, the thyroid gland, and the level of the glottis appear grossly unremarkable. The origin of the innominate artery, right common carotid artery, left common carotid artery, and lef t subclavian artery demonstrate no hemodynamically significant stenosis. There is atherosclerotic calcification at the origin of the right subclavian artery with a mild degree of associated stenosis. There is calcified plaque at the origin of the right vertebral artery with a mild degree of stenosis at the ostium. The left vertebral artery is patent and hypoplastic, completely obscured prox imally by venous contrast media. The left vertebral artery is markedly hypoplastic distally. The right vertebral artery is dominant and demonstrates scattered areas of moderate stenosis proximal ly. Multiple scattered areas of mild/moderate stenosis are noted involving the distal right vertebral artery as well as the imaged portions of the basilar artery. On the basis of NASCET criteria, no hemodynamically significant stenosis is appreciated involving the common carotid artery on either side. There is partially calcified plaque within the proximal right internal carotid artery with a focal area of stenosis at the origin of the right internal carot id artery which measures approximately 55-60%. Partially calcified plaque noted within the distal left CCA. There is prominent primarily noncalcifie d plaque at the origin of the left internal carotid artery with a focal area of severe stenosis with associated poststenotic dilatation involving the proximal left internal carotid artery. On the b asis of NASCET criteria this stenosis appears to be in the 90% range, with luminal narrowing to approximately 1-2 mm. There is no lymphadenopathy apparent within the neck. Review of the osseous structures demonstrates multilevel degenerative change within the cervical spin e with multilevel disc space narrowing degenerative endplate change and endplate sclerosis as well as multilevel bilateral mid cervical spine facet and uncovertebral osteophyte formation. IMPRESSION: On the basis of NASCET criteria there is severe stenosis at the origin of the left manager of internal al carotid artery as detailed above. Nodular densities within the right upper lobe for which follow-up chest CT is advised in August 0.
[2020-06-25] MEDS ORDERED: Iopamidol 370 76% 100 ML VIAL ONE (16:19)
== END 2020-06-25 12:47 | disposition home or self-care (01) ==
LOC: BICCT 12:46
PROVIDERS: ATTEND Thoracic Surgery (Cardiothoracic Vascular Surgery)
DX: I65.23 Occlusion and stenosis of bilateral carotid arteries (principal); I70.245 Atherosclerosis of native arteries of left leg with ulceration of other part of foot
CPT/HCPCS: 70498; Q9967

== ENCOUNTER 2020-07-01 11:15 | Inpatient (IN) | payer MEDICARE, OTHER ==
[2020-07-02 11:09] VITALS: BMI 19.8
--- NOTE | 2020-07-03 15:36 | HP ---
This is an H and P for admission on 07/04. HISTORY OF PRESENT ILLNESS: This is a 75-year-old gentleman who was seen in January of this year for a non-STEMI with a history of a posterior wall infarction at that time. He had a remote smoking history as well as a history of DVT in his left leg, for which he was treated with Eliquis. He ultimately underwent coronary artery bypass grafting to the obtuse marginal and right posterolateral with his LAD being relatively normal. He was seen back in followup in the office where he was complaining of rest pain in his left foot at night, which resolved after a few minutes of hanging his foot off the bed and 3 small ulcerations developed on that foot. He underwent CT angiography, showing moderate disease in his left iliac system with complete occlusion of his left superficial femoral artery and reconstitution of his popliteal artery behind the knee and adequate runoff, although diseased tibial vessels. He also was noted to have about a 70% to 80% left internal carotid artery stenosis. He is now being admitted for left fem-pop bypass and possible iliac artery stenting. PAST MEDICAL HISTORY: As noted, includes: 1. [place]. 2. History of DVT in his left leg. 3. Peripheral arterial disease. 4. Carotid disease. 5. Coronary artery disease. PAST SURGICAL HISTORY: Includes coronary artery bypass grafting in 02/2020. At that time, his left leg vein was utilized for coronary artery bypass grafting. His right veins were unsatisfactory. SOCIAL HISTORY: The patient is a remote smoker. He does not drink. He works doing construction regularly. ALLERGIES: HE HAS NO KNOWN ALLERGIES. MEDICATIONS: Include: 1. Lisinopril 5. 2. Metoprolol succinate 50. 3. Zetia 10. 4. Aspirin 81. He has been somewhat noncompliant with medications in the past. PHYSICAL EXAMINATION: NECK: He has no carotid bruits. CARDIAC: Regular rate and rhythm. No murmurs. CHEST: Well healed. LUNGS: Clear to auscultation. EXTREMITIES: He has slight edema in his left leg. He has small ulcerations on the dorsum of the left foot and the lateral left heel with palpable femoral pulses bilaterally and a right posterior tibial pulse. His arm pressure is 150, left PT 70, and right PT 130. NEUROLOGIC: Not remarkable. PLAN: At this time as noted and informed consent has been obtained. Job ID: [id number]
[2020-07-04] MEDS ORDERED: Protamine Sulfate 50 MG/5 ML VIAL ONE (06:33)
[2020-07-04] MEDS ORDERED: Heparin 5,000 UNITS/ML VIAL ONE (06:33)
[2020-07-04] MEDS ORDERED: Fentanyl 100 MCG/2 ML VIAL ONE ×3 (06:57→11:45)
[2020-07-04] MEDS ORDERED: Midazolam HCl 2 mg/2 ml Vial ONE (06:57)
[2020-07-04] MEDS ORDERED: Ondansetron HCl/PF 4 MG/2 ML Vial IVP PRN (07:06)
[2020-07-04] MEDS ORDERED: Iothalamate Meglumine 60% 50 ML VIAL FS ONE (07:38)
[2020-07-04] MEDS ORDERED: Glycopyrrolate 0.2 MG/ML 5 ML SYRINGE ONE ×2 (09:00)
[2020-07-04] MEDS ORDERED: PROPOFOL 200 MG/20 ML VIAL ONE (09:00)
[2020-07-04] MEDS ORDERED: Ketorolac Tromethamine 30 MG/ML VIAL ONE (09:00)
[2020-07-04] MEDS ORDERED: Ondansetron PF 4 MG/2 ML Vial ONE (09:00)
[2020-07-04] MEDS ORDERED: Rocuronium Bromide 10 MG/ML (10ML VIAL) ONE (09:00)
[2020-07-04] MEDS ORDERED: Lidocaine 1% PF 5 ML VIAL ONE (09:00)
[2020-07-04] MEDS ORDERED: Dexamethasone 20 MG/5 ML VIAL ONE (09:00)
[2020-07-04] MEDS ORDERED: Heparin 10,000 UNITS/ 10 ML VIAL ONE (09:05)
[2020-07-04] MEDS ORDERED: Acetaminophen 325 MG TAB PO PRN (11:09)
[2020-07-04] MEDS ORDERED: HYDROcodone/Acetaminophen 5/325 mg Tablet PO PRN (11:09)
[2020-07-04] MEDS ORDERED: Ondansetron PF 4 MG/2 ML Vial IVP PRN (11:09)
[2020-07-04] MEDS ORDERED: Sodium Chloride 0.9% 1,000 ML IV SCH (11:09)
[2020-07-04] MEDS ORDERED: Fentanyl 100 MCG/2 ML VIAL SLOW IVP PRN ×2 (11:09)
[2020-07-04] MEDS: HYDROcodone/Acetaminophen 5/325 mg Tablet PO PRN (13:42)
[2020-07-04] MEDS: CEFAZOLIN 2 GM in Premix Bag 1 BAG IVPB SCH (16:48)
[2020-07-04] MEDS: Lisinopril 5 MG TAB PO SCH (20:47)
[2020-07-04] MEDS: Enoxaparin Sodium 30 MG/0.3 ML SYRINGE SC SCH (20:48)
[2020-07-05] MEDS: CEFAZOLIN 2 GM in Premix Bag 1 BAG IVPB SCH ×2 (00:37→08:24)
[2020-07-05] MEDS: Lisinopril 5 MG TAB PO SCH ×2 (08:19→19:53)
[2020-07-05] MEDS: Aspirin Chewable 81 MG TAB PO SCH (08:22)
[2020-07-05] MEDS: Enoxaparin Sodium 30 MG/0.3 ML SYRINGE SC SCH ×2 (08:23→19:53)
[2020-07-05] MEDS: Clopidogrel Bisulfate 75 MG TAB PO SCH (08:23)
[2020-07-05] MEDS ORDERED: Aspirin 81 mg Enteric Coated Tablet PO SCH (09:00)
--- NOTE | 2020-07-05 11:08 | PRG ---
DATE OF SERVICE: 07/05/2020 Patient is afebrile, stable vital signs overnight. He has already walked with physical therapy and has a little nerve pain just over the upper lower leg below the knee. He has no swelling in his leg at this time. He has palpable dorsalis pedis pulse. His incisions are clean and dry. The patient is interested in going home, but not until tomorrow, so we will plan on discharge tomorrow and discharge and followup instructions have been given. Job ID: [id number]
[2020-07-05] MEDS: HYDROcodone/Acetaminophen 5/325 mg Tablet PO PRN (11:59)
[2020-07-05] MEDS ORDERED: FLU VACC QS2020-21(65YR UP)/PF 240 MCG/0.7 ML SYRINGE IM ONE (14:00)
[2020-07-06 04:59] VITALS: TEMP 98.4
[2020-07-06] MEDS: Lisinopril 5 MG TAB PO SCH (06:26)
[2020-07-06 08:16] VITALS: BP 186/86
[2020-07-06] MEDS: Clopidogrel Bisulfate 75 MG TAB PO SCH (09:52)
[2020-07-06] MEDS: Aspirin Chewable 81 MG TAB PO SCH (09:52)
[2020-07-06] MEDS: Enoxaparin Sodium 30 MG/0.3 ML SYRINGE SC SCH (09:52)
[2020-07-06] MEDS: HYDROcodone/Acetaminophen 5/325 mg Tablet PO PRN (09:55)
--- NOTE | 2020-07-06 19:12 | OP ---
DATE OF PROCEDURE: 07/04/2020 DIAGNOSIS: Ischemic rest pain and ulcerations, left foot. PROCEDURE PERFORMED: Left femoral to popliteal artery behind the knee with 6-mm thin-walled Van Buren-Gilmar ringed as well as angiography and placement of a left external iliac artery stent, 8 x 60 self-expanding, posted with an 8 mm balloon. CONTRAST: 30. FLUORO: 3 minutes and 29 seconds. ESTIMATED BLOOD LOSS: Less than 300. DESCRIPTION OF PROCEDURE: After adequate anesthesia had been obtained, the patient was prepped and draped. Incision made in the left groin, isolating the origin of the SFA and profunda. Following this, incision was made medially above the knee, exposing the mid popliteal artery where it became soft behind the knee. A tunnel was then created with the tunneler and the graft brought through the tunnel. The patient was then heparinized in ACT monitor. Access needle and wire were then advanced up into the aorta through the left common femoral artery, where retrograde angiography demonstrated about a 60% to 70% stenosis at the origin of the left external iliac artery and another 60% stenosis distally. A 5-Marshallese sheath was exchanged for 7-Marshallese sheath, following which, an 8 x 60 self-expanding stent was placed beginning at the distal most common iliac artery. It was posted with an 8-mm balloon with no residual stenosis. Following this, the sheath was removed and clamps applied to the common and profunda femoral artery. The distal most aspect of the common femoral artery was opened. A small window excised and the Van Buren-Gilmar graft was anastomosed here. Following this, the distal anastomosis was completed and this was somewhat more tedious due to surrounding veins, which had some bleeding as well as the fact that the popliteal artery was being accessed behind the knee without dividing any muscles or tendons. Following completion of this, there was an excellent pulse in the popliteal artery distally, and after obtaining good hemostasis, the wounds were irrigated and closed in layers. The patient is to be taken to the recovery room in guarded condition. Job ID: [id number]
--- NOTE | 2020-07-07 02:42 | DIS ---
DATE OF ADMISSION: 07/04/2020 DATE OF DISCHARGE: 07/06/2020 HOSPITAL COURSE: The patient was admitted, underwent a left iliac stent with an 8 x 60 self-expanding stent posted with an 8 mm balloon as well as a left distal common femoral to popliteal artery bypass behind the knee through a supra-popliteal approach. Postoperatively, he did well with trending toward high blood pressure. He will be discharged home on his admitting medicines plus he will receive a prescription for Plavix 75 mg a day and hydrocodone for pain. Discharge and followup instructions have been given. The patient did have preoperative edema in the left leg and I have explained to him that this will continue and he needs to elevate his leg when he is not ambulating. I have also gone over wound care instructions with the importance of keeping the groin wound clean and dry. Job ID: [id number]
--- NOTE | 2020-07-08 05:32 | PQF ---
CLINICAL DOCUMENTATION CLARIFICATION FORM: Dear : Artis Villalobos Date / Time: 07/08/20 8859 Please exercise your independent, professional judgment in responding to the clarification form. Clinical indicators are provided on the bottom of this form for your review Please check appropriate box(es): [ ] Protein Calorie Malnutrition: [ ] Mild [ ] Moderate [ ] Severe [ ] Other Malnutrition (please specify) [ ] Underweight without malnutrition [ ] Cachexia [ ] Other diagnosis [ y ] Unable to determine In addition, please specify: Present on Admission (POA): [y ] Yes [ ] No [ ] Unable to determine Physician Signature: Date/Time: For continuity of documentation, please document condition throughout progress notes and discharge summary. Thank You. To be completed by CDI/Coding staff for physician review: Present Clinical Indicators - Signs / Symptoms / Labs Results and Location in Medical Record [X] BP166/90, Pulse 58, Resp 18, Temp 97.5 Vital signs 07/04 [X] BMI of 19.8 Nutritional Assessment Dietitian Holly 07/05 [X] Weight Loss Nutritional Assessment Dietitian Holly 07/05 [X] Loss of Muscle Mass Nutritional Assessment Dietitian Holly 07/05 [X] Pt frequently following restrictive diets, moderate muscle wasting and fat loss suggestive of moderate malnutrition in the context of social/behavioral circumstances Nutritional Assessment Dietitian Holly 07/05 Present Risk Factors Results and Location in Medical Record [X] 75 year-old Male H&P p1 10 Dr Villalobos [X] Remote smoker H&P p1 07/04 Dr Villalobos Present Treatments Results and Location in Medical Record [X] Dietary consult Nutritional Assessment Dietitian Holly 07/05 [X] Nutritional supplements Nutritional Assessment Dietitian Holly 07/05 [X] Weight monitoring Nutritional Assessment Dietitian Holly 07/05 [X] Oral intake monitoring Nutritional Assessment Dietitian Holly 07/05 [X] Appetite stimulant - medication Nutritional Assessment Dietitian Holly 07/05 CDS/Quality Controller Signature: Mili Corbett Phone #: [phone] Date/Time: 07/08/2020 0531 Moderate Malnutrition (in acute illness) ? Energy Intake: <75% of estimated energy requirement for > 7 days ? Weight Loss: 1-2%/1 week; 5%/ 1 month; 7.5%/3 months ? Other: mild body fat loss; mild muscle mass loss; mild fluid accumulation; Severe Malnutrition (in acute illness) ? Energy Intake: ? 50% of estimated energy requirement for ? 5 days ? Weight Loss: >2%/1 week; >5%/1 month; >7.5%/3 months ? Other: moderate body fat loss; moderate muscle mass loss; moderate- severe fluid accumulation; measurably reduced hand compositor strength Moderate Malnutrition (in chronic illness) ? Energy Intake: <75% of estimated energy requirement for ?1 month ? Weight Loss: 5%/1 month; 7.5%/3 months; 10%/6 months; 20%/1 year ? Other: mild body fat loss; mild muscle mass loss; mild fluid accumulation Severe Malnutrition (in chronic illness) ? Energy Intake: ?75% of estimated energy requirement for ?1 month ? Weight Loss: >5%/1 month; >7.5%/3 months; >10%/6 months; >20%/1 year ? Other: severe body fat loss; severe muscle mass loss; severe fluid accumulation; measurably reduced hand compositor strength This is a permanent part of the Medical Record [facility]
== END 2020-07-06 11:30 | disposition home or self-care (01) | DRG 254 ==
LOC: SURG A 07-04 06:06
PROVIDERS: ADMIT Thoracic Surgery (Cardiothoracic Vascular Surgery); ATTEND Thoracic Surgery (Cardiothoracic Vascular Surgery)
PROC: 041L0JL Bypass Left Femoral Artery to Popliteal Artery with Synthetic Substitute, Open Approach (ICD-10-PCS; principal; 2020-07-04)
PROC: 047D0DZ Dilation of Left Common Iliac Artery with Intraluminal Device, Open Approach (ICD-10-PCS; 2020-07-04)
DX: I70.245 Atherosclerosis of native arteries of left leg with ulceration of other part of foot (principal); I25.10 Atherosclerotic heart disease of native coronary artery without angina pectoris; L97.529 Non-pressure chronic ulcer of other part of left foot with unspecified severity; I25.2 Old myocardial infarction; Z86.718 Personal history of other venous thrombosis and embolism; Z79.899 Other long term (current) drug therapy; Z79.82 Long term (current) use of aspirin; Z95.1 Presence of aortocoronary bypass graft; Z87.891 Personal history of nicotine dependence; Z28.29 Immunization not carried out because of patient decision for other reason
CPT/HCPCS: 76000; 80048; 85027; 87635; J0690; J1100; J1642; J1644; J1650; J1885; J2250; J2405; J2704; J2720; J3010; U0003